=== PATIENT | male | born 1940 | race Caucasian/White ===

== ENCOUNTER 2016-09-16 08:54 | Inpatient (IN) | payer OTHER ==
[~2016-09-16] VITALS: Ht 177.8 cm; Wt 108.9 kg
[2016-09-16] VITALS (50 sets, daily range): BP systolic 58–143; BP diastolic 24–67
--- NOTE | ~2016-09-16 | D ---
[facility] [place] [address] DISCHARGE SUMMARY Name: GALO JOLLEY Room #: 245-P [facility] IN M.R.#: [id number] Admission: 09/16/16 Attend Phys: Colten Barros MD Discharge: 10/07/16 Date of : 42 Report #: [id number] THIS REPORT FOR: //name// CC: Colten Campuzano [facility] DATE OF SERVICE: 10/07/2016 The patient was originally discharged from the hospital on 10/04/2016. The patient left the hospital on 10/07/2016. HISTORY OF PRESENT ILLNESS: The patient is a 76-year-old man with complicated past medical history. He was admitted to the hospital on 09/16/2016, and was supposed to go on 10/04/2016. The patient had large sacral wound. After discharge summary was completed, the patient stayed in the hospital for another wound debridement. His hospital stay was uneventful and his condition did not change. Please refer to the discharge summary from 10/04/2016 for hospital course and for final diagnoses. The patient had repeat wound debridement for a large stage IV sacral gluteal decubitus wound on 10/07/2016. After that, the patient was transferred to the [facility] as it was planned originally. Again, his final diagnosis is same as stated on discharge summary on 10/04/2016. <ELECTRONICALLY SIGNED> By: Karen Harkins MD 10/31/16 1325 1506 1632 Karen Harkins MD /nt
--- NOTE | ~2016-09-16 | S ---
[facility] [place] [address] SURGICAL PATH RPT PROCEDURE Name: GILMER JOLLEY Room #: 249-P ADM IN M.R.#: [id number] Admission: 09/16/16 Date of : 42 Discharge: Report #: [id number] Path Case #: [id number] PATHOLOGY REPORT COLLECTION DATE: 09/27/2016 RECEIVED DATE: 09/27/2016 SUBMITTING PHYS: Dr. Kelly Proctor OTHER PHYS: MD Dr. Justen Chatman SPECIMEN(S) RECEIVED: A.Sacral wound tissue * * * * * * * * * * * * FINAL DIAGNOSIS: Sacral wound tissue, debridement: - Fragments of fibroadipose tissue along with skeletal muscle showing acute inflammation as well as fibrinoid necrosis. - Squamous epithelium showing ulceration along with marked acute inflammation, consistent with wound. (IUV:all; d/t: 09/30/2016) PATHOLOGIST: Candi Warner M.D. REPORT ELECTRONICALLY SIGNED BY: Candi Warner M.D. DATE/TIME: 09/30/2016 15:19 * * * * * * * * * * * * GROSS PATHOLOGY: The specimen is received in formalin, labeled "Gilmer Jolley and sacral wound tissue." Received are few pieces of blood tinged, guy-brown, and necrotic appearing skin with underlying soft tissue ranging from 5.0 x 2.5 x 0.5 cm to 26.2 x 20.5 x 5.0 cm. The epidermal surface of the largest piece displays a 25.0 cm in greatest dimension guy-brown, poorly circumscribed, roughened lesion. Jeeper Operator sections to include the ulcer-like lesion are submitted in cassette A1. (TTL; 09/27/2016) CLINICAL HISTORY: Sacral wound INITIAL CPT CODE(S): A; 57676 Professional services performed by [employer] at [address] [address] SURGICAL PATH RPT PROCEDURE Name: GILMER JOLLEY Room #: 249-P ADM IN M.R.#: [id number] Admission: 09/16/16 Date of : 42 Discharge: Report #: [id number] Path Case #: [id number] [address] [facility] , [place] [address] Technical services performed by [employer] at [address] [place] [address], [facility] [address] [address]. [place] [address] PHONE: [phone] DIRECTOR: Jefe Colindres M.D. * * * END OF REPORT * * *
--- NOTE | ~2016-09-16 | HC ---
[facility] [place] [address] CONSULTATION Name: GALO JOLLEY Room #: 249-P ADM IN M.R.#: [id number] Admission: 09/16/16 Attend Phys: Colten Barros MD Discharge: Date of : 42 Report #: [id number] THIS REPORT FOR: //name// CC: Colten Carr DATE OF SERVICE: 09/16/2016 NEPHROLOGY CONSULTATION REPORT DATE OF ADMISSION: 09/16/2016. REASON FOR CONSULTATION: Hyperkalemia and acute renal failure. HISTORY OF PRESENT ILLNESS: A 76-year-old patient was transferred from [facility] with respiratory failure, rising creatinine and shock. The patient apparently developed heart failure and was evaluated at 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 He also had left carotid endarterectomy. I believe this was probably in June, subsequently postoperatively developed a large and progressive sacral decubitus wound, which has undergone several surgical debridement. So the patient was transferred in mid August to [facility] for further evaluation and treatment. While there, the wound was evaluated. He was found to have a diverting colostomy as well. He became progressively ill and short of breath, was felt to have aspiration pneumonia, was intubated and brought to [facility] and admitted today. PAST MEDICAL HISTORY: Apparently in addition to the above, he has had a prior history of diabetes with peripheral vascular disease as well, possible arterial bypass procedures to both legs, and a history of hypertension as well. No lab is available from [facility], but his creatinine on admission there was 0.3, and I do not know of any history of prior renal disease. HOME MEDICATIONS: As listed from [facility] included p.r.n. albuterol, amlodipine 5 mg daily, ascorbic acid 500 mg b.i.d., aspirin, atorvastatin 40 mg daily, carvedilol 3.125 mg daily, iron, furosemide 20 mg daily, lansoprazole or Prevacid 30 mg daily, Tradjenta 5 mg daily, losartan 100 mg daily, multiple vitamins, potassium 20 mEq daily, Flomax 0.4 mg daily, zinc 50 mg daily. He also received vancomycin and Zosyn yesterday. Also worded are insulin and melatonin. FAMILY HISTORY: Please see the old charts, really I do not find it obtainable. SOCIAL HISTORY: Apparently a past smoker. [address] [address] CONSULTATION Name: GALO JOLLEY Room #: 249-P [facility] IN M.R.#: [id number] Admission: 09/16/16 Attend Phys: Colten Barros MD Discharge: Date of : 42 Report #: [id number] REVIEW OF SYSTEMS: Cannot be taken. PHYSICAL EXAMINATION: GENERAL: This is an ill-appearing, poorly responsive gentleman, intubated in the ICU. SKIN: Slightly poor turgor. SKELETAL: Both legs are cool. The knees are a little bit mottled. He is on pressors. Left foot is little bit cooler than the right. HEENT AND NECK: Extraocular movements cannot be tested. Pupils do react. Endotracheal tube in place. The neck is supple. No carotid bruits are heard. CHEST: Coarse with rhonchi and rales. HEART: Regular, somewhat tachycardic. ABDOMEN: Soft, nontender. Bowel sounds are minimally present. EXTREMITIES: Again, cool as mentioned. He does move all extremities. PERTINENT LABORATORY DATA: Urinalysis was very concentrated with a specific gravity greater than 1.030. Bacteriuria and leukocyturia were noted. The white count was 22.2, hemoglobin 9.3, bands 9%, and platelets 549. Sodium 141, potassium 6.5, chloride 104, bicarbonate 29, BUN 123, creatinine 3.6, glucose 294, calcium 11.3, magnesium 3.2, albumin 1.9. ASSESSMENT AND PLAN: 1. Acute kidney injury. He appears to be in hypotensive shock, possibly septic, possibly hypovolemic, likely a combination of the 2. He also was hypercalcemic which could be contributing. Aggressive IV fluids are being undertaken. He is hyperkalemic, not surprisingly, but he has been getting potassium and losartan, lots of antihypertensives, and now, he is getting aggressive fluid resuscitation. There is some urine output. I am not aware from the records that I confine that he has had a renal failure, has been on dialysis. Unfortunately, the records sent are very scanty, what we do have does not seem to indicate pre-existing renal failure. 2. Status post coronary bypass, seems to be healing reasonably well. 3. Large difficult sacral decubitus ulcer. 4. Respiratory failure, possibly aspiration. 5. Apparent septic shock, on pressors being given aggressive IV fluids. These will be adjusted. 6. Status post diverting colostomy. 7. History of diabetes mellitus. 8. Severe peripheral vascular disease, status post peripheral bypass procedures. <ELECTRONICALLY SIGNED> By: Stevo Calixto MD 09/17/16 1250 09 29 Tyler Bruce MD /nt
--- NOTE | ~2016-09-16 | O ---
[facility] [place] [address] OPERATIVE REPORT Name: GALO JOLLEY Room #: 249-P [facility] IN M.R.#: [id number] Admission: 09/16/16 Attend Phys: Colten Barros MD Discharge: Date of : 41 Report #: [id number] THIS REPORT FOR: //name// CC: Colten Carr DATE OF SERVICE: 09/27/2016 DATE OF SERVICE: 09/27/2016 PREOPERATIVE DIAGNOSES: 1. 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 2. Severe protein calorie malnutrition. 3. Diabetes mellitus. 4. Coronary artery disease status post 4-vessel CABG. 5. Dysphagia status post PEG tube placement. 6. Hypertension. 7. Congestive heart failure. 8. Peripheral arterial disease. 9. Chronic anemia. 10. Recent colostomy placement for fecal diversion. 11. Respiratory failure that is ventilator dependent. 12. Healthcare-associated pneumonia. POSTOPERATIVE DIAGNOSES: 1. 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 2. Severe protein calorie malnutrition. 3. Diabetes mellitus. 4. Coronary artery disease status post 4-vessel CABG. 5. Dysphagia status post PEG tube placement. 6. Hypertension. 7. Congestive heart failure. 8. Peripheral arterial disease. 9. Chronic anemia. 10. Recent colostomy placement for fecal diversion. 11. Respiratory failure that is ventilator dependent. 12. Healthcare-associated pneumonia. PROCEDURE PERFORMED: Excisional debridement of skin and subcutaneous tissue, muscle and bone from a very large stage IV recurrent sacral decubitus wound ultimately measuring 30 x 28 cm in dimension (840 square cm). Preoperative wound measurements were 24 x 26 cm in dimension with overt necrosis circumferentially and throughout the bed of the wound. SURGEON: Kelly Proctor M.D. [address] [address] OPERATIVE REPORT Name: SHOLAGALO Room #: 249-P [facility] IN M.R.#: [id number] Admission: 09/16/16 Attend Phys: Colten Barros MD Discharge: Date of : 41 Report #: [id number] AUTOMOBILE BODY REPAIR CHIEF: GIOVANI Akhtar. ANESTHESIA: General endotracheal anesthesia. ESTIMATED BLOOD LOSS: Minimal (less than 20 mL). COMPLICATIONS: None appreciated. SPECIMENS: All excised tissue to pathology with excised sacral bone to microbiology for aerobic and anaerobic culture and sensitivity. COMPLICATIONS: None appreciated. INDICATIONS: The patient is a 76-year-old male with complicated recent past medical history that began with shortness of breath where he was found to be in CHF and pulmonary edema. The patient had an abnormal EKG and underwent left carotid endarterectomy with 4-vessel CABG due to an NH as well as stenting of subclavian stenosis. At some point throughout his hospitalization at [facility], he developed a stage IV sacral decubitus wound, which underwent multiple excisional debridements at the outside facility and he was ultimately transitioned to [facility] for long-term wound care and antibiotic therapy. The patient's severe sacral wound continued with recurrent necrosis and purulent drainage and due to its close proximity to the anal orifice, he was taken to the operating room on 09/13/2016 for diverting colostomy as well as excisional debridement of his wound back to healthy tissue. At the time of his debridement, the patient's wound showed a very compromised tissue throughout with difficulty in obtaining any blood flow to the gluteal musculature deep in the wound. An aggressive debridement was undertaken with plans for suspected repeat debridements in the future and the diverting colostomy was performed and he was discharged back to [facility] for continued wound care and antibiotic therapy. Some time on postoperative day #3 while at [facility], he developed increasing work of breathing where he was transitioned back to [facility] and was found to have healthcare-associated pneumonia and septic shock with sepsis secondary to Klebsiella urinary tract infection. The patient has since stabilized, although still in respiratory failure that is ventilator dependent and his wound shows overt recurrent necrosis throughout and as such, indication was for repeat debridement today. DESCRIPTION OF PROCEDURE: After explaining the risks, benefits and alternatives of the procedure with the patient's son, Adi Knox and his DPOA, Juan and obtaining consent, the patient was brought to the operating room, supine on his hospital bed. After conducting a thorough timeout procedure, verifying correct patient and procedure, he was given general endotracheal anesthesia via his indwelling oral tracheal tube. The patient's SCDs were continuously hooked up to pneumatic compression device and he was already on an inpatient regimen of IV antibiotic therapy, which is all in line with the SCIP protocol. The patient [address] [address] OPERATIVE REPORT Name: GALO JOLLEY Room #: 249-P [facility] IN M.R.#: [id number] Admission: 09/16/16 Attend Phys: Colten Barros MD Discharge: Date of : 42 Report #: [id number] was positioned on the operating room table in the prone position with all pressure points appropriately padded. The patient's wound was now prepped and draped in standard surgical sterile fashion. Electrocautery was used to circumferentially debride all nonviable skin and subcutaneous tissue, muscle and bone throughout the bed of the entire wound. This was done until I arrived upon healthy vascularized tissue throughout and ultimately this created a wound that was even more sizable then at the outset and ultimately measured 30 x 28 cm in dimension. Once all the necrotic nonviable tissue was removed, hemostasis was assured with electrocautery. The tip of the coccyx was removed and passed off the field as bone for microbiologic analysis. The tissue just inferior to this coccyx showed questionable viability; however, digital rectal exam showed that the rectum itself was very near to the surface and removal of this tissue would leave the rectum exposed in the bed of the wound. As such, this tissue was left in place and 2 sutures of 3-0 Vicryl were placed to anchor this to the surrounding tissue even further to hopefully prevent rectal exposure. I now used the Nitchonix ultrasonic debridement tool to circumferentially debride back all additional nonviable tissue as well as biofilm from the entirety of the wound. Gentle pressure was held on the wound and we had complete hemostasis. The wound was irrigated and dried and then I proceeded to spray thrombin throughout the bed of the wound for assistance with further hemostasis. The wound was then packed tightly with sterile saline soaked Kerlix gauze and was dressed with ABDs and Medipore tape. At the end of the procedure, all instrument, needle and sponge counts were correct. The patient tolerated the procedure without incident, was awakened in the operating room, still intubated and transitioned back to the ICU in stable condition in respiratory failure. I will have a discussion with Interventional Radiology to see if they are willing to attempt revascularization of his internal iliac arteries as his blood flow to the gluteal regions is severely compromised and without adequate blood flow will likely lead to poor outcomes. <ELECTRONICALLY SIGNED> By: Kelly Proctor MD, FACS 09/30/16 0754 1244 1316 Kelly Proctor MD, FACS /nt
--- NOTE | ~2016-09-16 | EKG ---
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 : 1940 Requested By: Tramaine Spangler Order Number: [id number] MD: John Hernandez Measurements Intervals [place] Rate: 109 P: 71 [place]: 137 QRS: 66 QRSD: 83 T: 251 QT: 315 QTc: 425 Interpretive Statements Sinus tachycardia Probable left atrial enlargement Probable LVH with secondary repol abnrm No previous ECG available for comparison Electronically Signed On 09-19-2016 15:47:33 AUTOMOBILE WRECK[employer] by John Hernandez [email or web address] <ELECTRONICALLY SIGNED> By: John Hernandez MD 09/19/16 1547 0925 4 John Hernandez MD /JUANITA
--- NOTE | ~2016-09-16 | HC ---
[facility] [place] [address] CONSULTATION Name: GALO JOLLEY Room #: 249-P ADM IN M.R.#: [id number] Admission: 09/16/16 Attend Phys: Colten Barros MD Discharge: Date of : 41 Report #: [id number] THIS REPORT FOR: //name// CC: Colten Carr DATE OF SERVICE: 09/16/2016 REASON FOR CONSULTATION: Acute respiratory failure with aspiration pneumonia. IMPRESSION: 1. Acute respiratory failure with aspiration pneumonia. 2. Septic shock. 3. History of congestive heart failure with coronary artery bypass graft. 4. Decubitus. 5. Diverting colostomy. 6. Leukocytosis. 7. Anemia. 8. Lactic acidosis. 9. Acute renal failure on chronic. 10. Hyperkalemia. 11. Elevated calcitonin. 12. Severe hypoxemia. 13. Peripheral arterial disease. PLAN: 1. ICU protocol. 2. Sepsis protocol. 3. Renal to see regarding fluid management. 4. May need CT abdomen and surgical evaluation. 5. ID and wound care to see also. HISTORY OF PRESENT ILLNESS: Review of Dr. Espinoza note, a 76-year-old male presented with some shortness of breath to [facility] with CHF and pulmonary edema, given Lasix, taken to [place], developed sacral wound, had multiple debridements, also CABG surgery. The patient was stabilized and transferred to [facility] on, I believe 09/04/2016. The patient developed confusion, respiratory failure, transferred to [place], temperature 38.5 with decreased level of consciousness, required intubation and by report had emesis and aspiration during that time. The patient was seen in the ER, sedated, did not follow. ALLERGIES: No known per chart. MEDICATIONS: Reviewed. [facility] [address] [place] [address] CONSULTATION Name: GALO JOLLEY Room #: 249-P [facility] IN M.R.#: [id number] Admission: 09/16/16 Attend Phys: Colten Barros MD Discharge: Date of : 41 Report #: [id number] PAST MEDICAL HISTORY: Includes diabetes, coronary artery disease, delirium, anemia, hypertension, CHF, peripheral vascular disease. FAMILY HISTORY: Unobtainable. SOCIAL HISTORY: Positive tobacco in past. Negative ETOH and drugs of abuse per notes. PHYSICAL EXAMINATION: VITAL SIGNS: T-max 100.3, pulse 111, respirations 28, BP 93/43 on pressor. LUNGS: Coarse. HEART: Tachycardic. ABDOMEN: Bowel sounds decreased. EXTREMITIES: Coolness on left and discoloration. CHEST X-RAY: Showed endotracheal tube in place, PICC line right atrial junction, heart enlarged, atelectasis on left. LABORATORY DATA: White count 22, hemoglobin 9.3, MCV 95, platelets 549, bands were 9, INR 1.2. D-dimer 9.86, lactic acid 3.8. CMP showed potassium . BUN 123. Creatinine 3.6, calcium 11.3 ABG on 100%, rate is 16, tidal volume 600, PEEP of 5, pH 7.388, pCO2 43, pO2 73. KUB showed gas at small and large bowel. Arterial Doppler showed severe left lower extremity arterial disease, very slow attenuated arterial flow and bypass graft. We will follow closely with you, antibiotics per ID, pressors as necessary. <ELECTRONICALLY SIGNED> By: Oriana Linda MD 09/16/16 2202 1414 1745 Oriana Linda MD /nt
--- NOTE | ~2016-09-16 | O ---
[facility] [place] [address] OPERATIVE REPORT Name: GALO JOLLEY Room #: 245-P [facility] IN M.R.#: [id number] Admission: 09/16/16 Attend Phys: Colten Barros MD Discharge: 10/07/16 Date of : 42 Report #: [id number] THIS REPORT FOR: //name// CC: Colten Carr DATE OF SERVICE: 10/07/2016 PREOPERATIVE DIAGNOSES: 1. 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 2. Severe protein calorie malnutrition. 3. Diabetes mellitus. 4. Coronary artery disease status post 4-vessel coronary artery bypass graft. 5. Dysphagia status post PEG tube placement. 6. Hypertension. 7. Congestive heart failure. 8. Peripheral arterial disease, status post angiogram with stenting. 9. Chronic anemia. 10. Recent colostomy placement for fecal diversion. 11. Respiratory failure, tracheostomy and ventilator dependent. 12. Resolving healthcare-associated pneumonia and urinary tract infection. POSTOPERATIVE DIAGNOSES: 1. 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 2. Severe protein calorie malnutrition. 3. Diabetes mellitus. 4. Coronary artery disease status post 4-vessel coronary artery bypass graft. 5. Dysphagia status post PEG tube placement. 6. Hypertension. 7. Congestive heart failure. 8. Peripheral arterial disease, status post angiogram with stenting. 9. Chronic anemia. 10. Recent colostomy placement for fecal diversion. 11. Respiratory failure, tracheostomy and ventilator dependent. 12. Resolving healthcare-associated pneumonia and urinary tract infection. PROCEDURE PERFORMED: Excisional debridement of skin, subcutaneous tissue, muscle and bone from very large stage IV, recurrent, sacro-gluteal decubitus wound ultimately measuring 32 x 32 cm in dimension (1024 square cm). Preoperative wound measurements were 30 x 28 cm in dimension with overt periwound necrosis circumferentially and throughout the bed of the wound. SURGEON: Kelly Proctor MD. SAS ANALYST: Colten Weathers, MS3. [address] [address] OPERATIVE REPORT Name: GALO JOLLEY Room #: 245-P [facility] IN M.R.#: [id number] Admission: 09/16/16 Attend Phys: Colten Barros MD Discharge: 10/07/16 Date of : 41 Report #: [id number] ANESTHESIA: General endotracheal anesthesia. ESTIMATED BLOOD LOSS: 40 mL. COMPLICATIONS: None appreciated. SPECIMENS: All excised tissue to pathology with the excised sacral bone to microbiology for culture. COMPLICATIONS: None appreciated. INDICATIONS: The patient is a 76-year-old male with complicated recent past medical history that began with shortness of breath where he was found to be in CHF and pulmonary edema. The patient underwent workup with EKG and carotid ultrasound and was found to have necessity of both 4-vessel CABG and left carotid endarterectomy. The carotid was elected to be addressed first and after undergoing left carotid endarterectomy, he developed myocardial infarction and underwent 4-vessel CABG as well as stenting of subclavian stenosis throughout his hospitalization at the outside hospital. At some point throughout his hospitalization while at [facility], he developed a stage 4 sacral decubitus wound that underwent multiple excisional debridements and he was ultimately transitioned to [facility] for rehabilitative care. The patient's wound continued with recurrent necrosis and purulent drainage and was taken to the operating room on 09/13/2016 for diverting colostomy and excisional debridement of his wound. The patient's wound has shown compromised tissue throughout with difficulty in obtaining any bleeding to the gluteal musculature and underwent that aggressive debridement. The patient was transitioned back to [facility] for continued therapy, but unfortunately developed healthcare-associated pneumonia and septic shock with urosepsis and was transitioned back to [facility] where he was intubated and remained intubated for 2 weeks due to respiratory failure. The patient underwent tracheostomy placement 1 week ago as well as underwent an aggressive angiography with stenting of flow limiting stenoses to the bilateral iliac regions. The completion angiogram showed significantly improved blood flow via collateral circulation to the sacro-gluteal region and as such, he continued in the ICU with antibiotic therapy, pulmonary management with intent to proceed back to the operating room today for repeat debridement in hopes that improved blood flow to the area will allow for some proper wound healing. DESCRIPTION OF PROCEDURE: After explaining the risks, benefits and alternatives of the procedure with the patient's son Adi Knox, his DPOA Juan as well as his daughter Pam and I had obtained proper consent. The patient was brought to the operating room, supine on his hospital bed. After conducting a thorough timeout procedure verifying correct patient and procedure, the patient was given general anesthesia via his indwelling tracheostomy appliance. The patient's SCDs were hooked up to the pneumatic compression device and he was already on an [facility] [address] [address] OPERATIVE REPORT Name: GALO JOLLEY Room #: 245-P [facility] IN M.R.#: [id number] Admission: 09/16/16 Attend Phys: Colten Barros MD Discharge: 10/07/16 Date of : 41 Report #: [id number] inpatient regimen of IV antibiotic therapy, which is all in line with the SCIP protocol. The patient was then positioned on the operating room table in the prone position with all pressure points appropriately padded. The patient's wound was now prepped and draped in standard surgical sterile fashion. Electrocautery was used to circumferentially debride all nonviable skin, subcutaneous tissue, muscle and bone throughout the bed of the entire wound. This was done until I arrived upon healthy vascularized tissue throughout which had markedly improved blood flow today versus the prior debridement time, which was 10 days ago today. Ultimately, this yielded a wound that was nearly circular and measured 32 x 32 cm in dimension. The tip of the coccyx as well as the patient's left ischial bone were removed with rongeurs back to healthy bleeding bone. This was the first time I got healthy bleeding bone as well and the tip of the coccyx was difficult to obtain hemostasis on and as such, bone wax was used with ultimately yielding a complete hemostasis. I now utilized the Introhive ultrasonic debridement tool to circumferentially debride all additional nonviable tissue as well as the biofilm that had collected from the entirety of the wound. This again yielded significant bleeding throughout the entirety of the wound and gentle pressure was held to the wound for hemostasis. Electrocautery was used to obtain ultimate hemostasis at this juncture. The wound was now copiously irrigated and dried. Hemostasis was assured. I did elect to place a spray thrombin throughout the bed of the wound for assistance with long-term hemostasis and then packed the wound tightly with sterile saline soaked Kerlix gauze and dressed the wound with ABDs and Medipore tape. At the end of the procedure, all instrument, needle and sponge counts were correct. The patient tolerated the procedure without incident, was awakened in the operating room, still ventilated through his tracheostomy where he was transitioned back to the ICU in stable condition with no apparent complications. <ELECTRONICALLY SIGNED> By: Kelly Proctor MD, FACS 10/08/16 1012 [id number] Kelly Proctor MD, FACS /nt
--- NOTE | ~2016-09-16 | HC ---
[facility] [place] [address] CONSULTATION Name: GALO JOLLEY Room #: 249-P ADM IN M.R.#: [id number] Admission: 09/16/16 Attend Phys: Colten Barros MD Discharge: Date of : 41 Report #: [id number] THIS REPORT FOR: //name// CC: Colten Carr DATE OF SERVICE: 09/17/2016 We were asked to see this patient. HISTORY OF PRESENT ILLNESS: The patient is a 76-year-old in the Intensive Care Unit with lower extremity arterial occlusive disease, specifically the patient is noted to have a pale left lower extremity. The patient is intubated and the history is from the chart and the staff. The patient seems to have been admitted September 16 as a transfer from [facility] for respiratory distress. The patient had been on BiPAP for the 14 hours prior to transfer over. He was started on vancomycin and Zosyn for worsening pulmonary infiltrates. The patient had a fever of 101.3, systolic blood pressure of 82 and heart rate 114 and concern was raised about sepsis with this confluence of issues. The patient seems to have been operated for coronary artery disease on 07/25/2016 and has had complications since that time with PEG tube, Aceves, colostomy. Postoperative to the bypass surgery, the patient developed sacral decubitus that required debridement, diverting colostomy. The patient had been transferred to [facility] for further wound care. Since that time, he had developed further confusion, respiratory failure and was transferred to this facility. ALLERGIES: None. MEDICATIONS: Vancomycin and Zosyn at the time of transfer. REVIEW OF SYSTEMS: Limited to the material on the chart. FAMILY HISTORY: Limited to the material on the records. PHYSICAL EXAMINATION: GENERAL: The patient is intubated. VITAL SIGNS: Temperature currently 36.8, pulse rate 109, blood pressure 113/44, O2 sat 100 on ventilator with supplemental oxygen. HEENT: I see no icterus. NECK: No mass, no bruit. CHEST: Scattered crackles. HEART: Rhythm regular. [address] [address] CONSULTATION Name: GALO JOLLEY Room #: 249-P ADM IN M.R.#: [id number] Admission: 09/16/16 Attend Phys: Colten Barros MD Discharge: Date of : 41 Report #: [id number] ABDOMEN: We note colostomy; soft, no mass, somewhat distended. EXTREMITIES: Left lower extremity is pale relative to the right. I do not feel a left femoral popliteal or dorsalis pedis or posterior tibial pulses. Right femoral pulse is strong. Right popliteal pulse is strong. We note saphenous vein harvest incisions or what appeared to be such in the right lower extremity. There does appear to be a left groin incision that is well healed. ASSESSMENT: The patient appears to have left iliofemoral thrombosis. It is not clear whether this is an acute event or an acute discovery of an event that happened some time ago. In any event, the patient is ill and he may be too ill for evaluation and treatment of this problem currently. Specifically, the patient would need some sort of imaging study, be it a CT angiogram or a direct arterial puncture, or arteriogram with possible intervention as appropriate. This may include thrombolytic treatment which we would have to review with others to make sure that there would be no contraindication. BUN and creatinine are elevated and the patient is a poor candidate for contrast at this point. It may be that the patient is too sick for adequate "usual" treatment of this problem. We will discuss with the others. Thank you for the consult. <ELECTRONICALLY SIGNED> By: Justen Baker MD 09/23/16 0937 [id number] Justen Baker MD /nt
--- NOTE | ~2016-09-16 | HC ---
[facility] [place] [address] CONSULTATION Name: GALO JOLLEY Room #: 249-P [facility] IN M.R.#: [id number] Admission: 09/16/16 Attend Phys: Colten Barros MD Discharge: Date of : 41 Report #: [id number] THIS REPORT FOR: //name// CC: Colten Carr DATE OF SERVICE: 09/17/2016 PERSONAL PHYSICIAN: Colten Barros MD CHIEF COMPLAINT: Decubitus ulcers. HISTORY OF PRESENT ILLNESS: This is a 76-year-old white male who was recently transferred from [facility] in septic shock, respiratory failure, and aspiration. The patient initially had been transferred to [facility] for treatment of a large sacrococcygeal decubitus ulcer. The patient supposedly started out at [facility] where he was in congestive heart failure and pulmonary edema. He was then transferred to [facility] where he underwent coronary bypass grafting. Postoperatively, the patient developed a large decubitus ulcer, which required surgical debridement and a diverting colostomy. The patient was transferred back to [facility] for further wound care antibiotic treatment; however, developed confusion, respiratory failure and was transferred back to [facility] for further aggressive care. The patient is currently in the ICU, intubated and sedated and unable to give any history. PAST MEDICAL HISTORY: Significant for diabetes, coronary artery disease, congestive heart failure, peripheral vascular disease, and hypertension. CURRENT MEDICATIONS: Multiple, I reviewed the patient's medication list. DRUG ALLERGIES: None. SOCIAL HISTORY: The patient has a history of smoking. FAMILY HISTORY AND REVIEW OF SYSTEMS: Unobtainable because the patient is intubated and sedated. PHYSICAL EXAMINATION: VITAL SIGNS: Blood pressure is in the 110s on Levophed drip. Heart rate is approximately 110, respiratory rate 15. GENERAL: This is an intubated and sedated white male who does moan and grimace to pain. HEENT: Normocephalic, atraumatic. Mucous membranes are dry. Oral endotracheal tube is in place as is oral gastric tube. NECK: Without JVD. [facility] [address] [place] [address] CONSULTATION Name: GALO JOLLEY Room #: 249-P [facility] IN M.R.#: [id number] Admission: 09/16/16 Attend Phys: Colten Barros MD Discharge: Date of : 41 Report #: [id number] LUNGS: Coarse throughout. HEART: Tachycardic. ABDOMEN: Soft. PEG tube is in place. Colostomy is in place and functioning. EXTREMITIES: Left lower extremity is somewhat mottled and cool to touch with absent peripheral pulses. Left heel has a deep tissue injury, which is somewhat boggy, but intact. Left great toe has a deep tissue injury, which is dry and intact. Right lower extremity is much warmer with a faint dorsalis pedis and posterior tibial pulse. Right heel is intact. NEUROLOGIC: Once again, the patient is intubated and sedated. SKIN: Evaluation of sacrococcygeal area reveals a large decubitus ulcer involving the entire sacrococcygeal region extending out into bilateral gluteal regions. There is exposed sacral bone and fascia. The wound itself has fairly sharp margins; however, it appears somewhat dusky. Periwound is ecchymotic. There was moderate foul odor noted. The wound bed is a mix of granulation slough. There is no significant tunneling or tracking. LABORATORY DATA: Albumin is markedly low at 1.9, creatinine is 3.6. IMPRESSION: 1. Largest stage IV sacrococcygeal decubitus ulcer extending out into the gluteal region. 2. Status post PEG tube placement. 3. Status post diverting colostomy. 4. Sepsis, most likely secondary to aspiration and respiratory failure. 5. Severe protein calorie malnutrition with an albumin of 1.9. 6. Left heel deep tissue injury with concern. 7. Left great toe deep tissue injury both present on admission. 8. Peripheral vascular disease with a concern for left foot ischemia. PLAN: At this time, given the patient's critical illness, we will use Dakin's quarter strength wet to dry dressings twice daily to his sacrococcygeal region. We will put him on a low air loss mattress and will be turned every 2 hours. We will paint the deep tissue injury with Betadine pending vascular evaluation. Make sure we maximize the patient's tube feedings with protein for supplementation for healing. We will continue to follow the patient while he is an inpatient. I appreciate the ability to consult. <ELECTRONICALLY SIGNED> By: Tez Reinoso MD 10/03/16 1342 1812 [id number] Tez Reinoso MD /nt
--- NOTE | ~2016-09-16 | HC ---
[facility] [place] [address] CONSULTATION Name: GALO JOLLEY Room #: 249-P ADM IN M.R.#: [id number] Admission: 09/16/16 Attend Phys: Colten Barros MD Discharge: Date of : 41 Report #: [id number] THIS REPORT FOR: //name// CC: Saul Calixto MD HISTORY OF PRESENT ILLNESS: The patient is a 76-year-old male with anemia and Hemoccult positive stool, which is the reason for GI consultation. The patient has multiple medical problems including currently being in the ICU on a ventilator. He is sedated at this time. He has undergone a diverting colostomy for a large stage IV sacrogluteal decubitus wound. The patient has had aspiration pneumonia and again is intubated at this time, also with a recent history of septic shock. Unable to obtain any history from the patient at this time; however, nursing reports brown stools. He did have a unit transfused of packed red blood cells on September 23 as well as September 16. He is on PPI therapy beginning yesterday. It is unclear if he has ever had a previous history of GI bleed. He does have a PEG tube in place, which is being used and apparently he is tolerating this well. PAST MEDICAL HISTORY: Large sacrogluteal decubitus wound, history of coronary artery disease, previous history of CABG, hypertension, history of sepsis, congestive heart failure, chronic anemia, diabetes, previous left carotid endarterectomy, peripheral vascular disease, PEG tube placement, diverting colostomy. ALLERGIES: No known drug allergies. FAMILY HISTORY: Unknown. SOCIAL HISTORY: Apparently previous smoker, no history of significant alcohol use. REVIEW OF SYSTEMS: Unobtainable. CURRENT MEDICATIONS: Norepinephrine, Protonix 40 b.i.d., vancomycin, fentanyl p.r.n., insulin, Unasyn, Lovenox, metoclopramide, albuterol, Tylenol p.r.n., propofol as direct. PHYSICAL EXAMINATION: VITAL SIGNS: Temperature is 97.7, pulse is 94, blood pressure 153/54, respiratory rate is 25. GENERAL: He is sedated. HEENT: Sclerae nonicteric. Oropharynx, endotracheal tube is in place. [address] [address] CONSULTATION Name: GALO JOLLEY Room #: 249-P [facility] IN M.R.#: [id number] Admission: 09/16/16 Attend Phys: Colten Barros MD Discharge: Date of : 41 Report #: [id number] NECK: Supple. CARDIOVASCULAR: Regular rate. CHEST: With decreased breath sounds bilaterally. ABDOMEN: Soft. He has a colostomy and is just left to midline in the mid abdomen. There is a brown liquid stool. There is no evidence of bleeding. Abdomen is soft. He is nondistended. A PEG tube is noted to be in place in the left upper quadrant, no signs of bleeding. EXTREMITIES: No cyanosis, clubbing or edema. LABORATORY DATA: Sodium 154, potassium 4.1, chloride 123, bicarbonate 21, BUN 39, creatinine 0.6, AST 22, total bilirubin 0.2, alkaline phosphatase 104, ALT 24, albumin 1.2. INR 1.1. WBC is 18.6, hemoglobin is 8.3, it has been fairly stable over the last 24 hours, although his hemoglobin was 6.9 early yesterday morning, and platelet count is 275. ASSESSMENT AND PLAN: 1. Anemia, Hemoccult positive stool. No signs of significant GI bleed at this time. He did receive 1 unit of packed cells yesterday. Agree with PPI therapy, which was just started. We will continue to monitor hemoglobin closely. If he has a significant drop or signs of significant bleeding in the near future, could consider upper endoscopy or further evaluation at that point. In the meantime, we will continue to monitor closely. Thank you for allowing me to participate in his care. <ELECTRONICALLY SIGNED> By: Ceasar Pantoja MD 09/25/16 [id number] Ceasar Pantoja MD /nt
--- NOTE | ~2016-09-16 | O ---
[facility] [place] [address] OPERATIVE REPORT Name: GALO JOLLEY Room #: 249-P [facility] IN M.R.#: [id number] Admission: 09/16/16 Attend Phys: Colten Barros MD Discharge: Date of : 42 Report #: [id number] THIS REPORT FOR: //name// CC: Colten Carr DATE OF SERVICE: 09/30/2016 PREOPERATIVE DIAGNOSES: 1. Respiratory failure, ventilator dependent. 2. 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 3. Severe protein-calorie malnutrition. 4. Diabetes mellitus. 5. Encephalopathy. 6. Coronary artery disease, status post 4-vessel CABG. 7. Dysphagia status post PEG tube placement. 8. Hypertension. 9. Congestive heart failure. 10. Peripheral arterial disease. 11. Chronic anemia. 12. Recent colostomy placement for fecal diversion. 13. Recent sepsis secondary to healthcare-associated pneumonia and urinary tract infection. POSTOPERATIVE DIAGNOSES: 1. Respiratory failure, ventilator dependent. 2. 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 3. Severe protein-calorie malnutrition. 4. Diabetes mellitus. 5. Encephalopathy. 6. Coronary artery disease, status post 4-vessel CABG. 7. Dysphagia status post PEG tube placement. 8. Hypertension. 9. Congestive heart failure. 10. Peripheral arterial disease. 11. Chronic anemia. 12. Recent colostomy placement for fecal diversion. 13. Recent sepsis secondary to healthcare-associated pneumonia and urinary tract infection. PROCEDURE: Tracheostomy placement using an #8 Shiley cuffed tracheostomy appliance. SURGEON: Kelly Proctor MD. TRANSFER STATION OPERATOR: Yuri Del Rio MD. [address] [address] OPERATIVE REPORT Name: GALO JOLLEY Room #: 249-P [facility] IN M.R.#: [id number] Admission: 09/16/16 Attend Phys: Colten Barros MD Discharge: Date of : 41 Report #: [id number] ANESTHESIA: General endotracheal anesthesia. ESTIMATED BLOOD LOSS: Minimal (less than 5 mL). COMPLICATIONS: None appreciated. SPECIMENS: None. INDICATIONS: The patient is a 76-year-old male with a complicated recent past medical history that began with shortness of breath, where he was found to have CHF and pulmonary edema. The patient had an abnormal EKG, as well as carotid artery blockage and underwent carotid endarterectomy with a subsequent myocardial infarction, that resulted in emergent 4-vessel CABG. The patient had postoperative respiratory failure from that procedure, but ultimately was extubated 2 weeks postoperatively, immediately prior to tracheostomy placement, and was transitioned to a long-term acute care center for rehabilitative efforts and antibiotics. Unfortunately, the patient did develop a stage 4 sacral decubitus wound throughout his hospitalization, for which he has undergone numerous debridements, and this necessitated another large debridement with diverting colostomy. Unfortunately, the patient was found to have healthcare-associated pneumonia and urinary tract infection, while back at the LTAC, and transitioned back to the acute care setting, where he was intubated, and has been in respiratory failure for the past 2 weeks. The patient has since undergone repeat debridement of his wound back to healthy tissue, but unfortunately as he has been unable to wean from the ventilator, and has been intubated for 2 weeks, indication was for tracheostomy placement today. DESCRIPTION OF PROCEDURE: After explaining the risks, benefits, and alternatives of the procedure and obtaining consent, the patient was brought to the operating room and placed supine on the operating room table. After conducting a thorough timeout procedure, verifying correct patient and procedure, the patient was given general endotracheal anesthesia, via his indwelling orotracheal tube. Once adequate anesthesia was attained, a shoulder roll was placed, with his head at slight extension, and his anterior neck was prepped and draped in the standard surgical sterile fashion. The patient's SCDs were hooked up to pneumatic compression device, and he was already on an inpatient regimen of IV antibiotic therapy, which is all in line with the SCIP protocol. A 5 mL of 0.5% Marcaine with epinephrine were used to anesthetize the skin in the anterior neck, midway between the sternal notch, and the cricothyroid membrane. A #15 bladed scalpel was used to create a 1.5 cm transverse incision at this location. Electrocautery was used to carry this down through the skin and subcutaneous tissue and platysma muscle, revealing the strap muscles posteriorly. The strap muscles were retracted laterally, and the avascular plain was opened down the midline using electrocautery, until we arrived upon the isthmus of the thyroid. The isthmus of the thyroid was [address] [address] OPERATIVE REPORT Name: GALO JOLLEY Room #: 249-P ADM IN M.R.#: [id number] Admission: 09/16/16 Attend Phys: Colten Barros MD Discharge: Date of : 41 Report #: [id number] transected slowly using electrocautery for meticulous hemostasis, which allowed us to arrive upon the anterior tracheal rings. The cricothyroid membrane was identified, and the second tracheal ring was identified. I now proceeded to create an H-type incision in the second tracheal ring using a #11 bladed scalpel. Each of the H-type flaps were removed with curved Alex scissors and passed off the field. Anesthesia now slowly withdrew the endotracheal tube until the tip was just cephalad to the tracheotomy, and a tracheal industrial hygienist device was used to dilate the tract. An #8 Shiley cuffed tracheostomy appliance was then placed through the tracheotomy with ease, and the cuff was inflated. The inner cannula was placed, and the tracheostomy was attached to the ventilator, showing immediate return of end-tidal CO2 with good tidal volumes. We saw no evidence of bleeding whatsoever. I proceeded to secure the tracheostomy appliance into place, using 2-0 nylon in standard fashion, as well as a foam tracheostomy strap. At the end of the procedure, all instrument, needle, and sponge counts were correct. The patient tolerated the procedure without incident, was awakened in the operating room, and transitioned back to the ICU on his hospital bed in stable condition with no apparent complications. <ELECTRONICALLY SIGNED> By: Kelly Proctor MD, FACS 09/30/16 1450 1344 1435 Kelly Proctor MD, FACS /nt
--- NOTE | ~2016-09-16 | S ---
[facility] [place] [address] SURGICAL PATH RPT PROCEDURE Name: GILMER JOLLEY Room #: 245-P [facility] IN M.R.#: [id number] Admission: 09/16/16 Date of : 42 Discharge: 10/07/16 Report #: [id number] Path Case #: [id number] PATHOLOGY REPORT COLLECTION DATE: 10/07/2016 RECEIVED DATE: 10/07/2016 SUBMITTING PHYS: Dr. Kelly Proctor OTHER PHYS: MD Dr. Justen Chatman SPECIMEN(S) RECEIVED: A.Sacral wound B.Sacral bone * * * * * * * * * * * * FINAL DIAGNOSIS: A. "Sacral wound," debridement: - Skin, subcutaneous tissue, and skeletal muscle with acute and chronic inflammation, necrosis, granulation tissue, fat necrosis, and pseudoepitheliomatous hyperplasia. B. "Sacral bone," debridement: - Decalcified bone and periosteum with focal acute osteomyelitis and fat necrosis. (CLW:; d/t: 10/09/16) PATHOLOGIST: La Sharma M.D. REPORT ELECTRONICALLY SIGNED BY: La Sharma M.D. DATE/TIME: 10/09/2016 15:08 * * * * * * * * * * * * GROSS PATHOLOGY: A. The specimen is received in formalin, labeled "Gilmer Jolley and sacral wound." Received is a 17.4 x 13.3 x 6.2 cm aggregate of yellow-guy to guy-brown and necrotic appearing soft tissue with overlying skin. The epidermal surfaces are guy-brown, wrinkled, and display ulcer-like lesions ranging from 1.8-7.8 cm in greatest dimension. Dock Hand sections to include skin and the ulcer-like lesions are submitted in cassette A1. B. The specimen is received in formalin, labeled "Gilmer Jolley and sacral bone." Received is a 2.5 x 1.1 x 0.4 cm aggregate of yellow-guy, irregular, and porous pieces of bone. The specimen is representatively submitted in cassette B1, following decalcification. (TTL; 10/08/2016) CLINICAL HISTORY: [facility] [place] [address] SURGICAL PATH RPT PROCEDURE Name: IGLMER JOLLEY Room #: 245-P [facility] IN M.R.#: [id number] Admission: 09/16/16 Date of : 41 Discharge: 10/07/16 Report #: [id number] Path Case #: [id number] Sacral decubitus wound INITIAL CPT CODE(S): A; 65820 B; 29225, 39251 Professional services performed by [facility] at [place] [address] [address], [place] [address] Technical services performed by [facility] at [address] [place] [address], [address] [address]. [facility] [address] [address] PHONE: [phone] DIRECTOR: Jefe W. Jens, M.D. * * * END OF REPORT * * *
--- NOTE | ~2016-09-16 | HC ---
[facility] [place] [address] CONSULTATION Name: GALO JOLLEY Room #: 249-P ADM IN M.R.#: [id number] Admission: 09/16/16 Attend Phys: Colten Barros MD Discharge: Date of : 41 Report #: [id number] THIS REPORT FOR: //name// CC: Colten Carr REASON FOR CONSULTATION: I was asked to see him concerning septic shock and aspiration pneumonia with respiratory failure. HISTORY OF PRESENT ILLNESS: The patient was a 76-year-old transferred from [facility] with septic shock, respiratory failure and aspiration. He was a 76-year-old that was initially treated at [facility] where he presented in congestive heart failure with pulmonary edema. 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 Postoperatively, developed a sacral decubitus which required surgical debridement and a diverting colostomy. He had debridements on 07/19/2016 through this month. On 09/04/2016, he was transferred to the [facility] for further wound care and antibiotic treatment. Since then, he has developed further confusion, developed respiratory failure and was transferred to [facility] by EMS. Here, he had a temperature of 38.5 degrees, blood pressure dropped down into 70/42. He has received 1 liter of IV fluids, second liter now being infused and has been placed on Levophed drip. He received IV antibiotics yesterday including vancomycin and Zosyn. These had been continued. It is noted when he was intubated, he had gross emesis and aspiration. His PEG tube has been placed to gravity drainage. Has had liquid stool from his colostomy. He is on 100% FIO2 and encephalopathic. ALLERGIES: None. MEDICATIONS: As noted on his MAR including the vancomycin and Zosyn. He does have an indwelling Aceves catheter and has been with moderate amount of urine output. His colostomy is functioning. He has a PEG tube now to drainage. Remains encephalopathic. No other rashes, although his left lower extremity remained mottled and cool. I am awaiting an arterial Doppler report. PAST MEDICAL HISTORY: Diabetes, coronary artery disease, delirium, anemia, hypertension, congestive heart failure, peripheral vascular disease. FAMILY HISTORY: Noncontributory. SOCIAL HISTORY: He is a past smoker. No significant alcohol intake. PHYSICAL EXAMINATION: He is now afebrile after receiving Tylenol. Blood pressure is in the 100 systolic with a heart rate of 120. He is on Levophed [address] [address] CONSULTATION Name: GALO JOLLEY Room #: 249-P [facility] IN M.R.#: [id number] Admission: 09/16/16 Attend Phys: Colten Barros MD Discharge: Date of : 41 Report #: [id number] drip at 25 mcg. He did not arouse but did move spontaneously upper and lower extremities. Pupils were reactive to light. He had conjugate gaze. Orally intubated. Lungs are coarse bilaterally greatest on the right. Heart was regular and tachycardic. Sternal incision well approximated. He still had some scabs over the mediastinal chest tube sites. Left upper abdomen PEG site was unremarkable. Colostomy unremarkable. Abdomen was soft. PEG tube was to drainage. Left lower extremity was mottled from thigh down to his toes. Left foot was cool. Could not palpate peripheral pulses there. He had had peripheral pulses in the foot. Wound to the sacrum was large, packed. LABORATORY STUDIES: Abdominal x-ray unremarkable with scattering gas. Chest x-ray, right upper extremity PICC was in the right SVC. Basilar atelectasis and infiltrate involving the medial left lung and right base. Also, a density in the medial right upper lung. Urinalysis, many wbc's, many bacteria. Sodium 141, potassium 6.5, bicarbonate 29, creatinine 3.6. Liver function tests normal. Albumin 1.9, lactate 3.8. INR 1.2, hemoglobin 9.3, white count 22,000, platelet count 549,000, 76% segs, 9% bands. ABG on 100% FIO2 showed pO2 73, pCO2 43, pH 7.39, lactate 4.8. Blood, urine and sputum cultures are pending. IMPRESSION: A 76-year-old with multiple issues initiating congestive heart failure requiring coronary artery bypass grafting followed by development of a large sacral decubitus that required surgical debridement on multiple accounts along with PEG tube placement and diverting colostomy. Now with gross aspiration pneumonia, healthcare associated with respiratory failure and septic shock. PLAN: Recommend continuing broad antibiotic coverage. We will transfer in Intensive Care Unit from the Emergency Room for full support. I have discussed the case with nursing staff continuing fluid resuscitation and pressors as necessary. He will be on a combination antibiotic therapy pending culture results. <ELECTRONICALLY SIGNED> By: Tramaine Carlos MD 09/17/16 1751 1220 1346 Tramaine Carlos MD /nt
--- NOTE | ~2016-09-16 | 2DMMODE ---
[facility] [place] [address] 2 D/M-MODE ECHOCARDIOGRAM Name: GALO JOLLEY Room #: 249-P [facility] IN M.R.#: [id number] Admission: 09/16/16 Attend Phys: Colten Barros MD Discharge: Date of : 42 Date of Service: 09/17/16 0851 Report #: [id number] THIS REPORT FOR: //name// Transthoracic Echocardiography Ordering physician: Oriana Linda Referring physician: Oriana Linda John C. Communication Analyst: Talya Hinkle Indications/History: Respiratory distress, sepsis, CHF. Hx: CABG 2016, CHF, HTN, DM BP: 145 / HR: 92bpm Height: 70in Weight: 221.5lb 48 Study data: M-mode, complete 2D, complete spectral Doppler, and color Doppler. Location: Bedside. Routine. Image quality was adequate. Patient in ICU on vent. 2D measurements Normal Normal LVID ED 50.9mm 36-57 IVS ED 12.4mm 6-11 LVID ES 38.8mm 23-40 LVPW ED 12.2mm 6-11 LA volume 27ml/m2 16-28 AoRoot diam 36.8mm 21-37 index ED LVOT diameter 22mm 18-23 Findings: Left ventricle: The cavity size was normal. There was mild focal basal hypertrophy of the septum. Systolic function was normal. The estimated ejection fraction was in the range of 60%. Wall motion was normal. Right ventricle: The cavity size was normal. Systolic function was normal. Right atrium: The atrium was normal in size. Left atrium: The atrium was normal in size. Volume index: 27ml/m2 (S). Aortic valve: Thickened and moderately calcified leaflets. Doppler: There was moderate stenosis. Aortic valve area of 1.4cm2. No regurgitation. Peak velocity: 309.6cm/s (S). [facility] [address] [place] [address] 2 D/M-MODE ECHOCARDIOGRAM Name: GALO JOLLEY Room #: 249-P ADM IN M.R.#: [id number] Admission: 09/16/16 Attend Phys: Colten Barros MD Discharge: Date of : 42 Date of Service: 09/17/16 0851 Report #: [id number] Mean gradient: 23.8mm Hg (S). Peak gradient: 38.3mm Hg (S). Mitral valve: Mildly calcified annulus. Mildly thickened, mildly calcified leaflets . Doppler: There was no evidence for stenosis. Mild to moderate regurgitation. Peak E-wave velocity: 78.5cm/s. Peak gradient: 2.5mm Hg (D). Peak A-wave velocity: 82.5cm/s. Tricuspid valve: Structurally normal valve. Doppler: There was no evidence for stenosis. Mild regurgitation. Regurgitant peak velocity: 282.2cm/s. Peak RV-RA gradient: 32mm Hg (S). Pulmonic valve: Poorly visualized. Doppler: There was no evidence for stenosis. Pericardium: There was no pericardial effusion. Aorta: Aortic root: The aortic root was normal in size. Pulmonary artery: Systolic pressure was estimated to be 42mm Hg. Diastolic function: Doppler parameters are consistent with abnormal left ventricular relaxation (grade 1 diastolic dysfunction). Systemic veins: Inferior vena cava: The vessel was dilated; the respirophasic diameter changes were blunted (< 50%). Conclusions 1. Left ventricle: The cavity size was normal. Systolic function was normal. The estimated ejection fraction was in the range of 60%. 2. Right ventricle: The cavity size was normal. 3. Left atrium: The atrium was normal in size. 4. Aortic valve: Thickened and moderately calcified leaflets. There was moderate stenosis. Aortic valve area of 1.4cm2. Mean gradient: 23.8mm Hg (S). 5. Mitral valve: Mildly calcified annulus. Mildly thickened, mildly calcified leaflets . Mild to moderate regurgitation. 6. Tricuspid valve: Mild regurgitation. 7. Pericardium, extracardiac: There was no pericardial effusion. <ELECTRONICALLY SIGNED> By: Erasto Means MD 09/17/16 0945 0851 0945 Erasto Means MD /wilbert
[~2016-09-16 08:54] MED LIST: ALBUTEROL2.5 MG/0.5 INH; APAP650 PER TUBE; ASPIR 8181 MG PO; ATORVASTATIN CA40 MG PER TUBE; BACITRACIN 500U30 G1 TOP; CARVEDILOL3.125 MG PER TUBE; CENTRUM SILVER1 EAC2 PER TUBE; COZAAR 50 MG TA50 M2 PER TUBE; DAKIN'S473 M1 TOP; DEX GLUCOSE IV; FLOMAX0.4 MG PO; GLUCAGEN1 M2 IV; GLUCOSE BITS1 GM PO; GLUCOSE1 EACH PO; HALOPERIDOL 2 MG2 M1 PER TUBE; JUVEN PACKET1 EACH PER TUBE; LASIX 20 MG TAB20 MG PER TUBE; MELATONIN3 MG PER TUBE; MICONAZOLE5 GM TOP; NORCO 5-325 TA1 EACH PER TUBE; NORVASC10 MG PER TUBE; NOVOLOG100 UNIT/1 SUBQ; POTASSIUM20 PER TUBE; PREVACID30 MG PER TUBE; TRADJENTA5 MG PER TUBE; VITAMINC500 PO; ZINC SULFATE 2220 M1 PER TUBE
[2016-09-16 09:27] LABS: HEMATOCRIT 29.9 % (42.0-52.0); HEMOGLOBIN 9.3 gm/dL (14.0-18.0); MCH 29.6 pg (26.0-34.0); MCHC 31.2 % (28.0-37.0); MCV 94.9 fL (80.0-100.0); PLATELET COUNT 549 thou/uL (150-400); RBC 3.15 mil/uL (4.50-6.00); RDW 17.2 % (10.5-14.5); WBC 22.2 thou/uL (4.0-11.0)
[2016-09-16 09:29] LABS: ANION GAP 8 mmol/L (7-16); BUN 123 mg/dL (7-18); CALCIUM 11.3 mg/dL (8.5-10.1); CHLORIDE 104 mmol/L (98-107); CO2 29 mmol/L (21-32); CREATININE 3.6 mg/dL (0.6-1.3); GLUCOSE 294 mg/dL (70-99); SODIUM 141 mmol/L (136-145)
[2016-09-16 09:31] LABS: POC ANION GAP 14 mmol/L (7-16); POC BUN > 99 mg/dL (7-18); POC CA IONIZED 5.4 mg/dL (4.5-5.3); POC CHLORIDE 104 mmol/L (98-107); POC CREATININE 3.3 mg/dL (0.6-1.3); POC GLUCOSE 299 mg/dL (70-99); POC HEMOGLOBIN 10.2 gm/dL (14.0-18.0); POC POTASSIUM 6.2 mmol/L (3.5-5.1); POC SODIUM 140 mmol/L (136-145); POC TCO2 29 mmol/L (21-32)
[2016-09-16 09:36] LABS: MANUAL DIFF YES
[2016-09-16 09:50] LABS: ALBUMIN 1.9 g/dL (3.4-5.0); ALKALINE PHOSPHATASE 81 U/L (46-116); APTT 36.2 Seconds (24.5-32.8); CK-MB MASS 0.5 ng/mL (<0.5-3.6); INR 1.2; MAGNESIUM 3.2 mg/dL (1.8-2.4); NT-PRO BRAIN NAT PEPTIDE 3264 pg/mL (<300); PROTIME 12.4 Seconds (9.3-11.4); SGOT 17 U/L (15-37); SGPT 15 U/L (30-65); TOTAL BILIRUBIN 0.5 mg/dL (<0.1-1.0); TOTAL PROTEIN 7.5 g/dL (6.4-8.2); TROPONIN-I < 0.04 ng/mL (<0.04-0.07)
[2016-09-16 09:51] LABS: POTASSIUM 6.5 mmol/L (3.5-5.1)
[2016-09-16 09:55] LABS: ABSOLUTE NEUTROPHILS 18.9 thou/uL (1.4-8.2); PLATELET ESTIMATE INCREASED; TOTAL CELL COUNT 100
[2016-09-16 10:02] LABS: URINE BILIRUBIN NEGATIVE (Negative); URINE BLOOD NEGATIVE (Negative); URINE COLOR YELLOW; URINE GLUCOSE-RANDOM* NEGATIVE (Negative); URINE KETONES TRACE (Negative); URINE LEUKOCYTES-REFLEX 2+ (Negative); URINE PROTEIN (DIPSTICK) TRACE (Negative); URINE SPECIFIC GRAVITY >= 1.030 (1.003-1.035); URINE UROBILINOGEN 0.2 E.U./dl (0.2-1.0)
[2016-09-16 10:04] LABS: ABG SAMPLE TYPE ARTERIAL; BE(vivo) 0.3 mmol/L (-2 to +3); HCO3 25.4 mmol/L (22.0-26.0); O2(CT) 12.6 mL/dL (15.0-23.0); O2Hb 93.4 % (92.0-98.0); PCO2 43.1 mmHg (35.0-45.0); PO2 73.3 mmHg (80.0-100.0); pH 7.388 (7.360-7.450); sO2 94.6 % (92.0-98.0); tCO2 26.7 mmol/L (24.0-30.0)
[2016-09-16 10:05] LABS: LACTATE 4.84 mmol/L (0.5-2.0); STICK SITE L.RADIAL; TIDAL VOLUME 600 ml
[2016-09-16 10:14] LABS: CASTS None Seen /LPF (None Seen); SQUAMOUS None Seen /LPF (0-3); URINE WBC-REFLEX >25 Many /HPF (0-5)
[2016-09-16 10:15] LABS: AMORPHOUS URATES Few /LPF (None Seen); URINE RBC 0-2 Rare /HPF (0-2)
[2016-09-16 15:13] LABS: ABG SAMPLE TYPE VENOUS; BE(vivo) -4.3 mmol/L (-2 to +3); HCO3 21.2 mmol/L (22.0-26.0); LACTATE 2.68 mmol/L (0.5-2.0); O2(CT) 8.2 mL/dL (15.0-23.0); O2Hb VENOUS 70.1 (65.0-85.0); PCO2 VENOUS 40.6 mmHg (41.0-51.0); PO2 VENOUS 40.6 mmHg (35.0-45.0); STICK SITE LINE; TIDAL VOLUME 600 ml; sO2 VENOUS 72.6 % (65.0-85.0); tCO2 22.4 mmol/L (24.0-30.0)
[2016-09-16 16:13] LABS: ABG SAMPLE TYPE VENOUS; BE(vivo) -4.5 mmol/L (-2 to +3); HCO3 20.9 mmol/L (22.0-26.0); LACTATE 2.49 mmol/L (0.5-2.0); O2(CT) 7.7 mL/dL (15.0-23.0); O2Hb VENOUS 69.1 (65.0-85.0); PCO2 VENOUS 39.9 mmHg (41.0-51.0); PO2 VENOUS 39.5 mmHg (35.0-45.0); sO2 VENOUS 71.2 % (65.0-85.0); tCO2 22.2 mmol/L (24.0-30.0)
[2016-09-16 16:14] LABS: STICK SITE LINE
[2016-09-16 16:38] LABS: CREATININE 3.3 mg/dL (0.6-1.3)
[2016-09-16 16:44] LABS: CALCIUM 8.2 mg/dL (8.5-10.1); POTASSIUM 4.5 mmol/L (3.5-5.1)
[2016-09-16 17:23] LABS: ABG SAMPLE TYPE VENOUS; BE(vivo) -5.8 mmol/L (-2 to +3); HCO3 19.7 mmol/L (22.0-26.0); LACTATE 2.67 mmol/L (0.5-2.0); O2(CT) 7.6 mL/dL (15.0-23.0); O2Hb VENOUS 67.8 (65.0-85.0); PCO2 VENOUS 38.8 mmHg (41.0-51.0); PO2 VENOUS 38.8 mmHg (35.0-45.0); STICK SITE LINE; sO2 VENOUS 69.4 % (65.0-85.0); tCO2 20.9 mmol/L (24.0-30.0)
[2016-09-16 17:24] LABS: TIDAL VOLUME 600 ml
[2016-09-16 19:20] LABS: ABG SAMPLE TYPE VENOUS; BE(vivo) -3.7 mmol/L (-2 to +3); HCO3 23.4 mmol/L (22.0-26.0); O2(CT) 7.9 mL/dL (15.0-23.0); O2Hb VENOUS 61.5 (65.0-85.0); PCO2 VENOUS 53.4 mmHg (41.0-51.0); PO2 VENOUS 36.8 mmHg (35.0-45.0); sO2 VENOUS 61.2 % (65.0-85.0); tCO2 25.1 mmol/L (24.0-30.0)
[2016-09-16 19:21] LABS: LACTATE 4.18 mmol/L (0.5-2.0); STICK SITE LINE
[2016-09-16 20:16] LABS: CALCIUM 9.2 mg/dL (8.5-10.1); CREATININE 3.4 mg/dL (0.6-1.3); POTASSIUM 4.6 mmol/L (3.5-5.1)
[2016-09-16 20:35] LABS: ABG SAMPLE TYPE VENOUS; BE(vivo) -9.5 mmol/L (-2 to +3); HCO3 16.8 mmol/L (22.0-26.0); O2(CT) 6.1 mL/dL (15.0-23.0); O2Hb VENOUS 67.6 (65.0-85.0); PCO2 VENOUS 39.1 mmHg (41.0-51.0); PO2 VENOUS 40.9 mmHg (35.0-45.0); STICK SITE LINE; sO2 VENOUS 68.5 % (65.0-85.0)
[2016-09-17] VITALS (95 sets, daily range): BP systolic 89–161; BP diastolic 34–86
[2016-09-17 04:22] LABS: HEMATOCRIT 25.4 % (42.0-52.0); MCH 29.3 pg (26.0-34.0); MCHC 31.6 % (28.0-37.0); MCV 92.7 fL (80.0-100.0); PLATELET COUNT 465 thou/uL (150-400); RBC 2.73 mil/uL (4.50-6.00); RDW 17.1 % (10.5-14.5); WBC 23.7 thou/uL (4.0-11.0)
[2016-09-17 04:25] LABS: MANUAL DIFF YES
[2016-09-17 04:38] LABS: ALBUMIN 1.3 g/dL (3.4-5.0); CALCIUM 8.5 mg/dL (8.5-10.1); CREATININE 2.7 mg/dL (0.6-1.3); MAGNESIUM 2.5 mg/dL (1.8-2.4); PHOSPHORUS 3.7 mg/dL (2.5-4.9); POTASSIUM 4.6 mmol/L (3.5-5.1); TOTAL BILIRUBIN 0.4 mg/dL (<0.1-1.0); TOTAL PROTEIN 5.9 g/dL (6.4-8.2)
[2016-09-17 04:46] LABS: ABSOLUTE NEUTROPHILS 20.1 thou/uL (1.4-8.2); METAMYELOCYTES 1 %; TOTAL CELL COUNT 100
[2016-09-17 04:47] LABS: POLYCHROMASIA 1+; TOXIC GRANULATION 1+
[2016-09-17 05:51] LABS: ABG SAMPLE TYPE ARTERIAL; BE(vivo) -4.8 mmol/L (-2 to +3); HCO3 21.4 mmol/L (22.0-26.0); LACTATE 1.55 mmol/L (0.5-2.0); O2(CT) 14.1 mL/dL (15.0-23.0); O2Hb 98.5 % (92.0-98.0); PCO2 44.4 mmHg (35.0-45.0); PO2 182.2 mmHg (80.0-100.0); STICK SITE RRA; sO2 99.1 % (92.0-98.0); tCO2 22.8 mmol/L (24.0-30.0)
[2016-09-17 05:52] LABS: TIDAL VOLUME 600 ml
[2016-09-17 18:32] LABS: CALCIUM 6.9 mg/dL (8.5-10.1); CREATININE 1.9 mg/dL (0.6-1.3); PHOSPHORUS 3.9 mg/dL (2.5-4.9); POTASSIUM 3.6 mmol/L (3.5-5.1)
[2016-09-18] VITALS (85 sets, daily range): BP systolic 87–152; BP diastolic 36–81
[2016-09-18 05:10] LABS: HEMATOCRIT 24.4 % (42.0-52.0); HEMOGLOBIN 7.7 gm/dL (14.0-18.0); MCH 29.4 pg (26.0-34.0); MCHC 31.6 % (28.0-37.0); MCV 93.1 fL (80.0-100.0); PLATELET COUNT 402 thou/uL (150-400); RBC 2.62 mil/uL (4.50-6.00); RDW 16.9 % (10.5-14.5); WBC 23.3 thou/uL (4.0-11.0)
[2016-09-18 05:12] LABS: MANUAL DIFF YES
[2016-09-18 05:22] LABS: ALBUMIN 1.3 g/dL (3.4-5.0); CALCIUM 8.3 mg/dL (8.5-10.1); CREATININE 1.5 mg/dL (0.6-1.3); MAGNESIUM 2.5 mg/dL (1.8-2.4); PHOSPHORUS 2.9 mg/dL (2.5-4.9); POTASSIUM 4.3 mmol/L (3.5-5.1)
[2016-09-18 05:42] LABS: ABG SAMPLE TYPE ARTERIAL; BE(vivo) -5.4 mmol/L (-2 to +3); HCO3 20.2 mmol/L (22.0-26.0); LACTATE 1.41 mmol/L (0.5-2.0); O2(CT) 11.5 mL/dL (15.0-23.0); O2Hb 91.4 % (92.0-98.0); PCO2 39.4 mmHg (35.0-45.0); PO2 65.6 mmHg (80.0-100.0); pH 7.327 (7.360-7.450); sO2 91.6 % (92.0-98.0); tCO2 21.4 mmol/L (24.0-30.0)
[2016-09-18 05:43] LABS: STICK SITE R.RADIAL; TIDAL VOLUME 600 ml
[2016-09-18 06:28] LABS: ABSOLUTE NEUTROPHILS 20.3 thou/uL (1.4-8.2); ANISOCYTOSIS 2+; MACROCYTES 1+; MYELOCYTES 1 %; POLYCHROMASIA OCCASIONAL; TOTAL CELL COUNT 100
[2016-09-19] VITALS (43 sets, daily range): BP systolic 92–154; BP diastolic 33–68
[2016-09-19 05:25] LABS: HEMATOCRIT 25.1 % (42.0-52.0); HEMOGLOBIN 7.7 gm/dL (14.0-18.0); MCH 28.9 pg (26.0-34.0); MCHC 30.7 % (28.0-37.0); MCV 94.4 fL (80.0-100.0); PLATELET COUNT 341 thou/uL (150-400); RBC 2.66 mil/uL (4.50-6.00); RDW 16.8 % (10.5-14.5); WBC 19.6 thou/uL (4.0-11.0)
[2016-09-19 05:35] LABS: MANUAL DIFF YES
[2016-09-19 05:39] LABS: ALBUMIN 1.2 g/dL (3.4-5.0); CALCIUM 8.6 mg/dL (8.5-10.1); CREATININE 1.1 mg/dL (0.6-1.3); MAGNESIUM 2.5 mg/dL (1.8-2.4); PHOSPHORUS 1.7 mg/dL (2.5-4.9); TOTAL BILIRUBIN 0.2 mg/dL (<0.1-1.0); TOTAL PROTEIN 5.8 g/dL (6.4-8.2)
[2016-09-19 05:43] LABS: ABG SAMPLE TYPE ARTERIAL; BE(vivo) -5.9 mmol/L (-2 to +3); HCO3 19.6 mmol/L (22.0-26.0); LACTATE 1.56 mmol/L (0.5-2.0); O2(CT) 13.6 mL/dL (15.0-23.0); PCO2 38.5 mmHg (35.0-45.0); PO2 81.2 mmHg (80.0-100.0); sO2 95.2 % (92.0-98.0); tCO2 20.8 mmol/L (24.0-30.0)
[2016-09-19 05:44] LABS: ABG COMMENT A/C RATE 18; STICK SITE R.RADIAL; TIDAL VOLUME 600 ml; pH 7.324 (7.360-7.450)
[2016-09-19 05:45] LABS: POTASSIUM 3.8 mmol/L (3.5-5.1)
[2016-09-19 06:43] LABS: ABSOLUTE NEUTROPHILS 17.4 thou/uL (1.4-8.2); METAMYELOCYTES 1 %; TOTAL CELL COUNT 100
[2016-09-19 06:44] LABS: ANISOCYTOSIS 1+
[2016-09-19 06:45] LABS: POLYCHROMASIA OCCASIONAL
[2016-09-20] VITALS (39 sets, daily range): BP systolic 120–171; BP diastolic 35–84
[2016-09-20 04:22] LABS: MCV 95.8 fL (80.0-100.0)
[2016-09-20 04:24] LABS: HEMATOCRIT 23.7 % (42.0-52.0); MCH 29.2 pg (26.0-34.0); MCHC 30.5 % (28.0-37.0); PLATELET COUNT 309 thou/uL (150-400); RBC 2.48 mil/uL (4.50-6.00); RDW 16.9 % (10.5-14.5); WBC 18.4 thou/uL (4.0-11.0)
[2016-09-20 04:25] LABS: ABG SAMPLE TYPE ARTERIAL; BE(vivo) -6.3 mmol/L (-2 to +3); HCO3 19.6 mmol/L (22.0-26.0); LACTATE 1.24 mmol/L (0.5-2.0); O2(CT) 15.1 mL/dL (15.0-23.0); O2Hb 95.7 % (92.0-98.0); PCO2 40.3 mmHg (35.0-45.0); sO2 96.4 % (92.0-98.0); tCO2 20.8 mmol/L (24.0-30.0)
[2016-09-20 04:26] LABS: STICK SITE R.RADIAL; TIDAL VOLUME 600 ml
[2016-09-20 04:27] LABS: ABG COMMENT A/C RATE 14; pH 7.304 (7.360-7.450)
[2016-09-20 04:33] LABS: HEMOGLOBIN 7.2 gm/dL (14.0-18.0); MANUAL DIFF YES
[2016-09-20 04:38] LABS: ALBUMIN 1.1 g/dL (3.4-5.0); CALCIUM 9.2 mg/dL (8.5-10.1); MAGNESIUM 2.7 mg/dL (1.8-2.4); PHOSPHORUS 1.8 mg/dL (2.5-4.9); POTASSIUM 3.8 mmol/L (3.5-5.1); TOTAL BILIRUBIN 0.2 mg/dL (<0.1-1.0); TOTAL PROTEIN 5.6 g/dL (6.4-8.2)
[2016-09-20 06:51] LABS: ABSOLUTE NEUTROPHILS 15.6 thou/uL (1.4-8.2); METAMYELOCYTES 2 %; MYELOCYTES 5 %; TOTAL CELL COUNT 100
[2016-09-20 06:52] LABS: ANISOCYTOSIS 1+
[2016-09-20 06:53] LABS: POLYCHROMASIA SLIGHT
[2016-09-20 13:41] LABS: HEMATOCRIT 23.4 % (42.0-52.0); HEMOGLOBIN 7.5 gm/dL (14.0-18.0)
[2016-09-21] VITALS (50 sets, daily range): BP systolic 108–163; BP diastolic 39–110
[2016-09-21 06:39] LABS: HEMATOCRIT 23.9 % (42.0-52.0); MCH 31.8 pg (26.0-34.0); MCHC 33.5 % (28.0-37.0); MCV 94.7 fL (80.0-100.0); PLATELET COUNT 280 thou/uL (150-400); RBC 2.53 mil/uL (4.50-6.00); RDW 17.1 % (10.5-14.5); WBC 18.9 thou/uL (4.0-11.0)
[2016-09-21 06:40] LABS: MANUAL DIFF YES
[2016-09-21 06:55] LABS: CALCIUM 8.9 mg/dL (8.5-10.1); CREATININE 0.7 mg/dL (0.6-1.3); MAGNESIUM 2.3 mg/dL (1.8-2.4); PHOSPHORUS 1.8 mg/dL (2.5-4.9); POTASSIUM 4.1 mmol/L (3.5-5.1); TOTAL BILIRUBIN 0.5 mg/dL (<0.1-1.0); TOTAL PROTEIN 5.5 g/dL (6.4-8.2)
[2016-09-21 07:02] LABS: ABSOLUTE NEUTROPHILS 16.1 thou/uL (1.4-8.2); ANISOCYTOSIS 2+; METAMYELOCYTES 1 %; TOTAL CELL COUNT 100
[2016-09-21 07:03] LABS: POIKILOCYTOSIS 1+
[2016-09-22] VITALS (39 sets, daily range): BP systolic 113–162; BP diastolic 38–64
[2016-09-22 06:07] LABS: HEMATOCRIT 25.3 % (42.0-52.0); HEMOGLOBIN 7.7 gm/dL (14.0-18.0); MCH 29.1 pg (26.0-34.0); MCHC 30.4 % (28.0-37.0); MCV 95.8 fL (80.0-100.0); PLATELET COUNT 300 thou/uL (150-400); RBC 2.64 mil/uL (4.50-6.00); RDW 17.1 % (10.5-14.5); WBC 21.6 thou/uL (4.0-11.0)
[2016-09-22 06:12] LABS: MANUAL DIFF YES
[2016-09-22 06:22] LABS: ALBUMIN 1.1 g/dL (3.4-5.0); CALCIUM 10.1 mg/dL (8.5-10.1); CREATININE 0.8 mg/dL (0.6-1.3); PHOSPHORUS 2.6 mg/dL (2.5-4.9); POTASSIUM 4.2 mmol/L (3.5-5.1)
[2016-09-22 06:52] LABS: ABSOLUTE NEUTROPHILS 18.1 thou/uL (1.4-8.2); METAMYELOCYTES 1 %; MYELOCYTES 3 %; PLATELET ESTIMATE NORMAL; PROMYELOCYTES 2 %; TOTAL CELL COUNT 100
[2016-09-22 09:05] LABS: ABG SAMPLE TYPE ARTERIAL; BE(vivo) -8.5 mmol/L (-2 to +3); HCO3 17.7 mmol/L (22.0-26.0); LACTATE 0.78 mmol/L (0.5-2.0); O2Hb 94.7 % (92.0-98.0); PCO2 39.1 mmHg (35.0-45.0); PO2 89.5 mmHg (80.0-100.0); sO2 95.8 % (92.0-98.0); tCO2 18.9 mmol/L (24.0-30.0)
[2016-09-22 09:06] LABS: STICK SITE R.RADIAL; pH 7.273 (7.360-7.450)
[2016-09-22 09:07] LABS: TIDAL VOLUME 600 ml
[2016-09-23] VITALS (49 sets, daily range): BP systolic 128–188; BP diastolic 40–112
[2016-09-23 04:05] LABS: MCV 96.9 fL (80.0-100.0)
[2016-09-23 04:06] LABS: HEMATOCRIT 23.2 % (42.0-52.0); MCHC 29.9 % (28.0-37.0); PLATELET COUNT 259 thou/uL (150-400); RBC 2.39 mil/uL (4.50-6.00); RDW 17.7 % (10.5-14.5); WBC 18.4 thou/uL (4.0-11.0)
[2016-09-23 04:10] LABS: MANUAL DIFF YES
[2016-09-23 04:12] LABS: HEMOGLOBIN 6.9 gm/dL (14.0-18.0)
[2016-09-23 04:21] LABS: CALCIUM 10.1 mg/dL (8.5-10.1); CREATININE 0.8 mg/dL (0.6-1.3); PHOSPHORUS 2.9 mg/dL (2.5-4.9); POTASSIUM 4.4 mmol/L (3.5-5.1)
[2016-09-23 04:50] LABS: ABSOLUTE NEUTROPHILS 14.9 thou/uL (1.4-8.2); ANISOCYTOSIS 1+; ATYPICAL MONONUCLEARS 1 %; METAMYELOCYTES 3 %; MYELOCYTES 3 %; TOTAL CELL COUNT 100
[2016-09-23 16:22] LABS: URINE BILIRUBIN NEGATIVE (Negative); URINE BLOOD NEGATIVE (Negative); URINE COLOR YELLOW; URINE GLUCOSE-RANDOM* NEGATIVE (Negative); URINE KETONES NEGATIVE (Negative); URINE NITRITE NEGATIVE (Negative); URINE PROTEIN (DIPSTICK) NEGATIVE (Negative); URINE UROBILINOGEN 0.2 E.U./dl (0.2-1.0)
[2016-09-23 16:39] LABS: HEMATOCRIT 26.3 % (42.0-52.0); HEMOGLOBIN 8.2 gm/dL (14.0-18.0)
[2016-09-23 17:55] LABS: HEMATOCRIT 27.4 % (42.0-52.0); HEMOGLOBIN 8.6 gm/dL (14.0-18.0); MCHC 31.5 % (28.0-37.0); MCV 95.3 fL (80.0-100.0); RBC 2.87 mil/uL (4.50-6.00); WBC 21.1 thou/uL (4.0-11.0)
[2016-09-23 18:03] LABS: CALCIUM 10.3 mg/dL (8.5-10.1); CREATININE 0.7 mg/dL (0.6-1.3); POTASSIUM 4.1 mmol/L (3.5-5.1)
[2016-09-23 18:06] LABS: INR 1.1; PROTIME 11.8 Seconds (9.3-11.4)
[2016-09-24] VITALS (49 sets, daily range): BP systolic 117–178; BP diastolic 37–126
[2016-09-24 04:38] LABS: HEMATOCRIT 26.9 % (42.0-52.0); HEMOGLOBIN 8.4 gm/dL (14.0-18.0); MCH 29.4 pg (26.0-34.0); MCHC 31.2 % (28.0-37.0); MCV 94.3 fL (80.0-100.0); PLATELET COUNT 275 thou/uL (150-400); RBC 2.85 mil/uL (4.50-6.00); RDW 16.9 % (10.5-14.5); WBC 18.6 thou/uL (4.0-11.0)
[2016-09-24 05:04] LABS: ALBUMIN 1.2 g/dL (3.4-5.0); CALCIUM 10.8 mg/dL (8.5-10.1); CREATININE 0.6 mg/dL (0.6-1.3); MAGNESIUM 1.9 mg/dL (1.8-2.4); POTASSIUM 4.1 mmol/L (3.5-5.1); TOTAL BILIRUBIN 0.2 mg/dL (<0.1-1.0); TOTAL PROTEIN 6.2 g/dL (6.4-8.2)
[2016-09-24 05:12] LABS: MANUAL DIFF YES
[2016-09-24 05:34] LABS: ABG SAMPLE TYPE ARTERIAL; BE(vivo) -4.4 mmol/L (-2 to +3); HCO3 21.6 mmol/L (22.0-26.0); LACTATE 1.28 mmol/L (0.5-2.0); O2Hb 96.8 % (92.0-98.0); PCO2 43.5 mmHg (35.0-45.0); PO2 106.3 mmHg (80.0-100.0); sO2 97.4 % (92.0-98.0); tCO2 22.9 mmol/L (24.0-30.0)
[2016-09-24 05:35] LABS: STICK SITE R.RADIAL; TIDAL VOLUME 500 ml; pH 7.313 (7.360-7.450)
[2016-09-24 07:22] LABS: METAMYELOCYTES 1 %; MYELOCYTES 4 %; TOTAL CELL COUNT 100
[2016-09-24 07:23] LABS: ANISOCYTOSIS 1+; MACROCYTES SLIGHT; MICROCYTES SLIGHT; POLYCHROMASIA SLIGHT
[2016-09-24 07:24] LABS: HYPOCHROMASIA SLIGHT
[2016-09-25] VITALS (24 sets, daily range): BP systolic 121–151; BP diastolic 35–68
[2016-09-25 04:34] LABS: HEMATOCRIT 25.3 % (42.0-52.0); HEMOGLOBIN 7.9 gm/dL (14.0-18.0); MCH 29.5 pg (26.0-34.0); MCHC 31.1 % (28.0-37.0); MCV 94.9 fL (80.0-100.0); PLATELET COUNT 247 thou/uL (150-400); RBC 2.67 mil/uL (4.50-6.00); RDW 17.1 % (10.5-14.5); WBC 18.3 thou/uL (4.0-11.0)
[2016-09-25 04:36] LABS: MANUAL DIFF YES
[2016-09-25 04:37] LABS: CALCIUM 10.1 mg/dL (8.5-10.1); CREATININE 0.6 mg/dL (0.6-1.3); MAGNESIUM 1.6 mg/dL (1.8-2.4)
[2016-09-25 05:16] LABS: ABG SAMPLE TYPE ARTERIAL; BE(vivo) -4.4 mmol/L (-2 to +3); HCO3 21.1 mmol/L (22.0-26.0); LACTATE 1.21 mmol/L (0.5-2.0); O2(CT) 12.3 mL/dL (15.0-23.0); O2Hb 98.1 % (92.0-98.0); PCO2 40.2 mmHg (35.0-45.0); PO2 129.8 mmHg (80.0-100.0); STICK SITE R.RADIAL; pH 7.337 (7.360-7.450); sO2 98.4 % (92.0-98.0); tCO2 22.3 mmol/L (24.0-30.0)
[2016-09-25 05:17] LABS: TIDAL VOLUME 500 ml
[2016-09-25 05:30] LABS: ABSOLUTE NEUTROPHILS 15.9 thou/uL (1.4-8.2); METAMYELOCYTES 1 %; MYELOCYTES 1 %; TOTAL CELL COUNT 100
[2016-09-25 05:31] LABS: ANISOCYTOSIS 2+; HYPOCHROMASIA 1+; LARGE PLATELETS OCCASIONAL; POLYCHROMASIA OCCASIONAL
[2016-09-26] VITALS (12 sets, daily range): BP systolic 116–166; BP diastolic 41–57
[2016-09-26 05:01] LABS: ABG SAMPLE TYPE ARTERIAL; BE(vivo) -3.8 mmol/L (-2 to +3); HCO3 22.6 mmol/L (22.0-26.0); LACTATE 1.21 mmol/L (0.5-2.0); O2(CT) 12.5 mL/dL (15.0-23.0); PO2 79.5 mmHg (80.0-100.0); sO2 94.5 % (92.0-98.0)
[2016-09-26 05:02] LABS: STICK SITE R.RADIAL; TIDAL VOLUME 500 ml; pH 7.299 (7.360-7.450)
[2016-09-26 05:04] LABS: HEMATOCRIT 24.8 % (42.0-52.0); MCH 30.4 pg (26.0-34.0); MCHC 32.5 % (28.0-37.0); MCV 93.6 fL (80.0-100.0); PLATELET COUNT 255 thou/uL (150-400); RBC 2.65 mil/uL (4.50-6.00); RDW 16.9 % (10.5-14.5); WBC 17.4 thou/uL (4.0-11.0)
[2016-09-26 05:51] LABS: MANUAL DIFF YES
[2016-09-26 05:56] LABS: POTASSIUM 3.9 mmol/L (3.5-5.1)
[2016-09-26 05:57] LABS: CALCIUM 9.8 mg/dL (8.5-10.1); CREATININE 0.6 mg/dL (0.6-1.3); MAGNESIUM 1.9 mg/dL (1.8-2.4)
[2016-09-26 07:39] LABS: ABSOLUTE NEUTROPHILS 14.8 thou/uL (1.4-8.2); METAMYELOCYTES 1 %; MYELOCYTES 2 %; TOTAL CELL COUNT 100
[2016-09-26 07:40] LABS: ANISOCYTOSIS 1+
[2016-09-27] VITALS (59 sets, daily range): BP systolic 88–157; BP diastolic 39–57
[2016-09-27 05:37] LABS: ABG SAMPLE TYPE ARTERIAL; BE(vivo) -2.4 mmol/L (-2 to +3); HCO3 23.4 mmol/L (22.0-26.0); LACTATE 1.01 mmol/L (0.5-2.0); O2(CT) 12.5 mL/dL (15.0-23.0); O2Hb 94.7 % (92.0-98.0); PCO2 44.6 mmHg (35.0-45.0); PO2 84.5 mmHg (80.0-100.0); pH 7.337 (7.360-7.450); sO2 95.7 % (92.0-98.0); tCO2 24.7 mmol/L (24.0-30.0)
[2016-09-27 05:38] LABS: STICK SITE RRA; TIDAL VOLUME 500 ml
[2016-09-27 05:40] LABS: ABSOLUTE NEUTROPHILS 13.2 thou/uL (1.4-8.2); BASOPHILS 0.5 % (0.0-2.0); HEMATOCRIT 24.8 % (42.0-52.0); HEMOGLOBIN 7.8 gm/dL (14.0-18.0); LYMPHOCYTES 10.2 % (24.0-44.0); MCH 29.6 pg (26.0-34.0); MCHC 31.3 % (28.0-37.0); MCV 94.4 fL (80.0-100.0); MONOCYTES 5.9 % (1.0-8.0); PLATELET COUNT 240 thou/uL (150-400); POLYS 81.4 % (36.0-66.0); RBC 2.62 mil/uL (4.50-6.00); WBC 16.2 thou/uL (4.0-11.0)
[2016-09-27 05:46] LABS: CALCIUM 10.3 mg/dL (8.5-10.1); CREATININE 0.6 mg/dL (0.6-1.3); MAGNESIUM 1.9 mg/dL (1.8-2.4); POTASSIUM 3.8 mmol/L (3.5-5.1)
[2016-09-27 05:52] LABS: MANUAL DIFF NO
[2016-09-27 17:17] LABS: ABG SAMPLE TYPE ARTERIAL; BE(vivo) -3.1 mmol/L (-2 to +3); HCO3 22.8 mmol/L (22.0-26.0); LACTATE 1.06 mmol/L (0.5-2.0); O2(CT) 11.7 mL/dL (15.0-23.0); O2Hb 94.6 % (92.0-98.0); PCO2 44.8 mmHg (35.0-45.0); PO2 82.2 mmHg (80.0-100.0); sO2 95.3 % (92.0-98.0); tCO2 24.1 mmol/L (24.0-30.0)
[2016-09-27 17:18] LABS: STICK SITE R.RADIAL; TIDAL VOLUME 500 ml; pH 7.324 (7.360-7.450)
[2016-09-28] VITALS (89 sets, daily range): BP systolic 91–165; BP diastolic 37–107
[2016-09-28 05:11] LABS: ABG SAMPLE TYPE ARTERIAL; LACTATE 0.91 mmol/L (0.5-2.0); O2(CT) 11.6 mL/dL (15.0-23.0); O2Hb 94.6 % (92.0-98.0); PCO2 42.8 mmHg (35.0-45.0); PO2 81.5 mmHg (80.0-100.0); tCO2 22.3 mmol/L (24.0-30.0)
[2016-09-28 05:12] LABS: STICK SITE R.RADIAL; pH 7.308 (7.360-7.450)
[2016-09-28 05:13] LABS: FIO2 30 %; TIDAL VOLUME 500 ml
[2016-09-28 05:43] LABS: HEMATOCRIT 25.2 % (42.0-52.0); HEMOGLOBIN 7.8 gm/dL (14.0-18.0); MCH 29.9 pg (26.0-34.0); MCHC 31.1 % (28.0-37.0); MCV 96.1 fL (80.0-100.0); PLATELET COUNT 279 thou/uL (150-400); RBC 2.62 mil/uL (4.50-6.00); RDW 16.9 % (10.5-14.5)
[2016-09-28 06:00] LABS: ALBUMIN 1.2 g/dL (3.4-5.0); CALCIUM 10.1 mg/dL (8.5-10.1); CREATININE 0.8 mg/dL (0.6-1.3); MAGNESIUM 1.8 mg/dL (1.8-2.4); POTASSIUM 3.6 mmol/L (3.5-5.1); TOTAL BILIRUBIN 0.2 mg/dL (<0.1-1.0); TOTAL PROTEIN 6.2 g/dL (6.4-8.2)
[2016-09-28 06:10] LABS: MANUAL DIFF YES
[2016-09-28 09:44] LABS: ABSOLUTE NEUTROPHILS 19.1 thou/uL (1.4-8.2); MYELOCYTES 1 %; POLYCHROMASIA OCCASIONAL; TOTAL CELL COUNT 100
[2016-09-28 09:45] LABS: ANISOCYTOSIS 1+
[2016-09-28 11:38] LABS: URINE BILIRUBIN NEGATIVE (Negative); URINE BLOOD NEGATIVE (Negative); URINE COLOR YELLOW; URINE GLUCOSE-RANDOM* NEGATIVE (Negative); URINE KETONES NEGATIVE (Negative); URINE LEUKOCYTES-REFLEX NEGATIVE (Negative); URINE PROTEIN (DIPSTICK) NEGATIVE (Negative); URINE SPECIFIC GRAVITY 1.015 (1.003-1.035); URINE UROBILINOGEN 0.2 E.U./dl (0.2-1.0)
[2016-09-29] VITALS (54 sets, daily range): BP systolic 98–159; BP diastolic 34–55
[2016-09-29 04:44] LABS: HEMATOCRIT 23.5 % (42.0-52.0); HEMOGLOBIN 7.5 gm/dL (14.0-18.0); MCH 29.9 pg (26.0-34.0); MCHC 31.7 % (28.0-37.0); MCV 94.3 fL (80.0-100.0); PLATELET COUNT 283 thou/uL (150-400); RBC 2.49 mil/uL (4.50-6.00); RDW 18.1 % (10.5-14.5); WBC 23.1 thou/uL (4.0-11.0)
[2016-09-29 04:45] LABS: MANUAL DIFF YES
[2016-09-29 05:10] LABS: ALBUMIN 1.2 g/dL (3.4-5.0); CALCIUM 10.1 mg/dL (8.5-10.1); CREATININE 0.7 mg/dL (0.6-1.3); PHOSPHORUS 3.3 mg/dL (2.5-4.9); POTASSIUM 3.4 mmol/L (3.5-5.1)
[2016-09-29 05:30] LABS: ABSOLUTE NEUTROPHILS 19.2 thou/uL (1.4-8.2); METAMYELOCYTES 1 %; MYELOCYTES 1 %; TOTAL CELL COUNT 100
[2016-09-29 05:31] LABS: ANISOCYTOSIS 2+; LARGE PLATELETS FEW; POLYCHROMASIA 1+
[2016-09-30] VITALS (41 sets, daily range): BP systolic 102–155; BP diastolic 39–64
[2016-09-30 05:27] LABS: HEMATOCRIT 23.7 % (42.0-52.0); HEMOGLOBIN 7.5 gm/dL (14.0-18.0); MCH 29.7 pg (26.0-34.0); MCHC 31.8 % (28.0-37.0); MCV 93.4 fL (80.0-100.0); PLATELET COUNT 286 thou/uL (150-400); RBC 2.54 mil/uL (4.50-6.00); RDW 17.5 % (10.5-14.5); WBC 17.4 thou/uL (4.0-11.0)
[2016-09-30 05:30] LABS: ALBUMIN 1.1 g/dL (3.4-5.0); CALCIUM 10.2 mg/dL (8.5-10.1); CREATININE 0.6 mg/dL (0.6-1.3); PHOSPHORUS 3.3 mg/dL (2.5-4.9); POTASSIUM 3.3 mmol/L (3.5-5.1)
[2016-09-30 06:02] LABS: MANUAL DIFF YES
[2016-09-30 08:17] LABS: TOTAL CELL COUNT 100
[2016-09-30 08:18] LABS: ANISOCYTOSIS 1+
[2016-10-01] VITALS (31 sets, daily range): BP systolic 112–160; BP diastolic 39–67
[2016-10-01 04:35] LABS: HEMATOCRIT 24.7 % (42.0-52.0); HEMOGLOBIN 7.7 gm/dL (14.0-18.0); MCH 30.1 pg (26.0-34.0); MCHC 31.3 % (28.0-37.0); MCV 96.4 fL (80.0-100.0); RBC 2.56 mil/uL (4.50-6.00); RDW 18.1 % (10.5-14.5); WBC 15.4 thou/uL (4.0-11.0)
[2016-10-01 04:46] LABS: ALBUMIN 1.1 g/dL (3.4-5.0); CALCIUM 10.3 mg/dL (8.5-10.1); CREATININE 0.6 mg/dL (0.6-1.3); POTASSIUM 3.3 mmol/L (3.5-5.1)
[2016-10-01 09:21] LABS: INR 1.1; PROTIME 11.5 Seconds (9.3-11.4)
[2016-10-02] VITALS (24 sets, daily range): BP systolic 119–193; BP diastolic 38–75
[2016-10-02 05:14] LABS: BASOPHILS 0.4 % (0.0-2.0); EOSINOPHILS 1.9 % (0.0-3.0); HEMOGLOBIN 7.6 gm/dL (14.0-18.0); LYMPHOCYTES 10.2 % (24.0-44.0); MCH 29.8 pg (26.0-34.0); MCHC 31.9 % (28.0-37.0); MCV 93.4 fL (80.0-100.0); MONOCYTES 7.4 % (1.0-8.0); PLATELET COUNT 343 thou/uL (150-400); POLYS 80.1 % (36.0-66.0); RBC 2.56 mil/uL (4.50-6.00); RDW 18.2 % (10.5-14.5); WBC 13.7 thou/uL (4.0-11.0)
[2016-10-02 05:16] LABS: MANUAL DIFF NO
[2016-10-02 05:27] LABS: CALCIUM 10.1 mg/dL (8.5-10.1); CREATININE 0.5 mg/dL (0.6-1.3); TOTAL BILIRUBIN 0.2 mg/dL (<0.1-1.0); TOTAL PROTEIN 5.9 g/dL (6.4-8.2)
[2016-10-03] VITALS (24 sets, daily range): BP systolic 125–180; BP diastolic 38–55
[2016-10-03 04:51] LABS: ABSOLUTE NEUTROPHILS 9.1 thou/uL (1.4-8.2); EOSINOPHILS 2.7 % (0.0-3.0); HEMATOCRIT 26.8 % (42.0-52.0); HEMOGLOBIN 8.4 gm/dL (14.0-18.0); MCH 30.3 pg (26.0-34.0); MCHC 31.3 % (28.0-37.0); MCV 96.7 fL (80.0-100.0); MONOCYTES 7.9 % (1.0-8.0); PLATELET COUNT 367 thou/uL (150-400); POLYS 70.4 % (36.0-66.0); RBC 2.77 mil/uL (4.50-6.00); RDW 18.8 % (10.5-14.5); WBC 12.9 thou/uL (4.0-11.0)
[2016-10-03 04:53] LABS: MANUAL DIFF NO
[2016-10-03 05:25] LABS: ALBUMIN 1.1 g/dL (3.4-5.0); CALCIUM 10.6 mg/dL (8.5-10.1); CREATININE 0.5 mg/dL (0.6-1.3); POTASSIUM 3.8 mmol/L (3.5-5.1)
[2016-10-04] VITALS (25 sets, daily range): BP systolic 109–175; BP diastolic 36–56
[2016-10-04 05:03] LABS: ALBUMIN 1.1 g/dL (3.4-5.0); CALCIUM 10.8 mg/dL (8.5-10.1); CREATININE 0.5 mg/dL (0.6-1.3); PHOSPHORUS 2.8 mg/dL (2.5-4.9); POTASSIUM 3.6 mmol/L (3.5-5.1)
[2016-10-04] MEDS ORDERED: LOPRESSOR25 PER TUBE (09:16)
[2016-10-04] MEDS ORDERED: FENTANYL PA25 MCG/HR TRANSDERM (09:16)
[2016-10-04] MEDS ORDERED: METOCLOPRAMID5 MG/ML IV PUSH (09:16)
[2016-10-04] MEDS ORDERED: SEROQUEL 25 MG25 M1 PO (09:16)
[2016-10-04] MEDS ORDERED: LASIX 20 MG TAB20 MG PER TUBE (09:16)
[2016-10-04] MEDS ORDERED: NOVOLIN N100 UNIT/3 SUBQ (09:16)
[2016-10-04] MEDS ORDERED: FEVERALL650 MG RECTAL (09:16)
[2016-10-04] MEDS ORDERED: CLOPIDOGREL75 MG PO (09:16)
[2016-10-04] MEDS ORDERED: ENOXAPARIN40 MG/0.1 SUBQ (09:16)
[2016-10-04] MEDS ORDERED: MEROPENEM500 MG IV (09:16)
[2016-10-04] MEDS ORDERED: FENTANYL 0.50 MCG/ML IV PUSH (09:16)
[2016-10-04 15:30] LABS: ABG SAMPLE TYPE ARTERIAL; BE(vivo) -3.8 mmol/L (-2 to +3); HCO3 20.7 mmol/L (22.0-26.0); LACTATE 1.07 mmol/L (0.5-2.0); O2(CT) 11.1 mL/dL (15.0-23.0); O2Hb 95.8 % (92.0-98.0); PCO2 34.8 mmHg (35.0-45.0); PO2 92.3 mmHg (80.0-100.0); pH 7.392 (7.360-7.450); sO2 97.1 % (92.0-98.0); tCO2 21.8 mmol/L (24.0-30.0)
[2016-10-04 15:31] LABS: ABG COMMENT 2 HRS CPAP; Pressure Support 12 cm H20; STICK SITE R.RADIAL
[2016-10-05] VITALS (24 sets, daily range): BP systolic 111–164; BP diastolic 41–77
[2016-10-06] VITALS (24 sets, daily range): BP systolic 104–166; BP diastolic 38–62
[2016-10-06 05:30] LABS: ABSOLUTE NEUTROPHILS 8.4 thou/uL (1.4-8.2); BASOPHILS 0.4 % (0.0-2.0); EOSINOPHILS 3.3 % (0.0-3.0); HEMATOCRIT 25.8 % (42.0-52.0); HEMOGLOBIN 8.1 gm/dL (14.0-18.0); LYMPHOCYTES 15.2 % (24.0-44.0); MCHC 31.3 % (28.0-37.0); MCV 95.8 fL (80.0-100.0); MONOCYTES 10.2 % (1.0-8.0); PLATELET COUNT 376 thou/uL (150-400); POLYS 70.9 % (36.0-66.0); RBC 2.69 mil/uL (4.50-6.00); RDW 18.6 % (10.5-14.5); WBC 11.8 thou/uL (4.0-11.0)
[2016-10-06 05:37] LABS: CALCIUM 10.7 mg/dL (8.5-10.1); CREATININE 0.5 mg/dL (0.6-1.3); POTASSIUM 3.9 mmol/L (3.5-5.1)
[2016-10-06 05:56] LABS: MANUAL DIFF NO
[2016-10-07] VITALS (22 sets, daily range): BP systolic 125–171; BP diastolic 46–76
[2016-10-07 05:46] LABS: BASOPHILS 0.5 % (0.0-2.0); EOSINOPHILS 2.7 % (0.0-3.0); HEMATOCRIT 27.7 % (42.0-52.0); HEMOGLOBIN 8.8 gm/dL (14.0-18.0); LYMPHOCYTES 15.2 % (24.0-44.0); MCH 30.2 pg (26.0-34.0); MCHC 31.8 % (28.0-37.0); MONOCYTES 8.4 % (1.0-8.0); PLATELET COUNT 436 thou/uL (150-400); POLYS 73.2 % (36.0-66.0); RBC 2.91 mil/uL (4.50-6.00); WBC 10.9 thou/uL (4.0-11.0)
[2016-10-07 05:52] LABS: MANUAL DIFF NO
[2016-10-07 06:00] LABS: CALCIUM 11.2 mg/dL (8.5-10.1); CREATININE 0.4 mg/dL (0.6-1.3); POTASSIUM 3.9 mmol/L (3.5-5.1)
[2016-10-15] MEDS ORDERED: MEROPENEM-500 MG/50 IVPB (16:24)
[2016-10-15] MEDS ORDERED: ATROVENT HFA14 GM INH (16:27)
[2016-10-15] MEDS ORDERED: POTASSIUM20 PER TUBE (16:28)
[2016-10-16] MEDS ORDERED: LEVEMIR SUBQ (07:50)
[2016-10-16] MEDS ORDERED: VANCOMYCIN750 MG/150 IVPB (09:40)
[2016-10-16] MEDS ORDERED: LASIX 40 MG TAB40 M2 IV PUSH (09:42)
[2016-10-16] MEDS ORDERED: APAP650 PO (09:46)
[2016-10-16] MEDS ORDERED: PLAVIX 75 MG TA75 M1 PER TUBE (09:49)
[2016-10-16] MEDS ORDERED: HEPARIN SO5000 UNIT/ SUBQ (09:53)
[2016-10-16] MEDS ORDERED: FENTANYL CITRATE1 GM TOP (09:59)
[2016-10-16] MEDS ORDERED: OMEPRAZOLE40 MG NG (10:01)
[2016-10-16] MEDS ORDERED: ENTERAL NUTRITION FORMULA PER TUBE (10:04)
[2016-10-16] MEDS ORDERED: HYDROCODONE-AP1 EAC6 PER TUBE (10:05)
== END 2016-10-07 16:40 | DRG 3 ==
LOC: ER 08:54 → ICU 10:06 → EROBS 10:06 → ICU 13:20
PROVIDERS: Emergency Medicine; Hospitalist; Internal Medicine; Internal Medicine Endocrinology, Diabetes & Metabolism; Internal Medicine Nephrology; Internal Medicine Pulmonary Disease; Nurse Practitioner; Nurse Practitioner Acute Care; Radiology Vascular & Interventional Radiology; Specialist; Surgery; Surgery Vascular Surgery
PROC: 05HB33Z Insertion of Infusion Device into Right Basilic Vein, Percutaneous Approach (ICD-10-PCS; principal; 2016-09-16)
PROC: 30233N1 Transfusion of Nonautologous Red Blood Cells into Peripheral Vein, Percutaneous Approach (ICD-10-PCS; principal; 2016-09-16)
PROC: 0BH17EZ Insertion of Endotracheal Airway into Trachea, Via Natural or Artificial Opening (ICD-10-PCS; principal; 2016-09-16)
PROC: 5A1955Z Respiratory Ventilation, Greater than 96 Consecutive Hours (ICD-10-PCS; principal; 2016-09-16)
PROC: 0QB10ZZ Excision of Sacrum, Open Approach (ICD-10-PCS; 2016-09-27)
PROC: 0B110F4 Bypass Trachea to Cutaneous with Tracheostomy Device, Open Approach (ICD-10-PCS; 2016-09-30)
PROC: 047H3DZ Dilation of Right External Iliac Artery with Intraluminal Device, Percutaneous Approach (ICD-10-PCS; 2016-10-01)
PROC: 047J3DZ Dilation of Left External Iliac Artery with Intraluminal Device, Percutaneous Approach (ICD-10-PCS; 2016-10-01)
PROC: 047D3DZ Dilation of Left Common Iliac Artery with Intraluminal Device, Percutaneous Approach (ICD-10-PCS; 2016-10-01)
DX: A41.9 Sepsis, unspecified organism (principal); J96.01 Acute respiratory failure with hypoxia; R65.21 Severe sepsis with septic shock; E43 Unspecified severe protein-calorie malnutrition; L89.154 Pressure ulcer of sacral region, stage 4; J69.0 Pneumonitis due to inhalation of food and vomit; G93.40 Encephalopathy, unspecified; N17.9 Acute kidney failure, unspecified; N39.0 Urinary tract infection, site not specified; I70.92 Chronic total occlusion of artery of the extremities; E87.0 Hyperosmolality and hypernatremia; Z99.11 Dependence on respirator [ventilator] status; D64.9 Anemia, unspecified; E86.0 Dehydration; E11.65 Type 2 diabetes mellitus with hyperglycemia; B96.1 Klebsiella pneumoniae [K. pneumoniae] as the cause of diseases classified elsewhere; I73.9 Peripheral vascular disease, unspecified; I25.10 Atherosclerotic heart disease of native coronary artery without angina pectoris; E87.70 Fluid overload, unspecified; E83.42 Hypomagnesemia; E87.6 Hypokalemia; B95.62 Methicillin resistant Staphylococcus aureus infection as the cause of diseases classified elsewhere; E83.41 Hypermagnesemia; N18.9 Chronic kidney disease, unspecified; E66.9 Obesity, unspecified; Z68.34 Body mass index [BMI] 34.0-34.9, adult; Z98.890 Other specified postprocedural states; Z95.1 Presence of aortocoronary bypass graft; Z79.4 Long term (current) use of insulin; Z79.899 Other long term (current) drug therapy
CPT/HCPCS: 10078; 50101; 50386; 50403; 50517; 53353; 53354; 56525; 62110; 62900; 85076

== ENCOUNTER 2016-10-18 05:22 | Day surgery (SDC) | payer OTHER ==
[~2016-10-18] VITALS: Ht 177.8 cm; Wt 111.0 kg
--- NOTE | ~2016-10-18 | S ---
[facility] [place] [address] [place] [address] SURGICAL PATH RPT PROCEDURE Name: GILMER JOLLEY Room #: [facility] M.R.#: [id number] Admission: 10/18/16 Date of : 42 Discharge: 10/18/16 Report #: [id number] Path Case #: [id number] PATHOLOGY REPORT COLLECTION DATE: 10/18/2016 RECEIVED DATE: 10/18/2016 SUBMITTING PHYS: Dr. Kelly Proctor OTHER PHYS: Dr. Sloane Simpson ADDENDUM REPORT (Order Date: 10/22/2016 13:33) ADDENDUM COMMENT: This addendum is issued subsequent to reviewing a well controlled Congo red special stain performed on block A1. It is negative for amyloid. The originally rendered diagnosis remains unchanged. Co-review: Dr. La Sharma (IUV:all; d/t: 10/22/2016) Professional services performed by [facility] at [facility] [place] [place] [address], [place] [address] Technical services performed by [facility] at [address] [place] [address], [address] [place] [address]. ELECTRONICALLY SIGNED BY: Candi Warner M.D. DATE/TIME:10/22/2016 14:36 SPECIMEN(S) RECEIVED: A.Sacral decubitus ulcer * * * * * * * * * * * * FINAL DIAGNOSIS: Sacral decubitus: - Marked acute inflammation along with necrosis extending into underlying tissue, compatible with findings of an ulcer bed. - Dense eosinophilic material present within subcutaneous tissue. (Please see comment) COMMENT: A Congo red special stain is ordered. This stain will be reported in an addendum to follow. (IUV:csd; d/t: 10/21/2016) PATHOLOGIST: Candi Warner M.D. REPORT ELECTRONICALLY SIGNED BY: Candi Warner M.D. DATE/TIME: 10/21/2016 15:[address] [facility] [place] [facility] [place] [address] SURGICAL PATH RPT PROCEDURE Name: GILMER JOLLEY Room #: DEP [facility].#: [id number] Admission: 10/18/16 Date of : 42 Discharge: 10/18/16 Report #: [id number] Path Case #: [id number] * * * * * * * * * * * * GROSS PATHOLOGY: The specimen is received in formalin labeled "Gilmer Jolley, sacral decubitus". Received are multiple segments of dusky sofia-guy to yellow-guy soft tissue admixed with possible skin measuring 6.5 x 5.8 x 2.5 cm in aggregate dimensions. The specimen is submitted representatively in cassette A1. (CAA; 10/18/2016) CLINICAL HISTORY: Sacral wound INITIAL CPT CODE(S): A; 18575, 20199 Professional services performed by [facility] at [facility] [place] [place] [address] [place] [address] Technical services performed by [facility] at [address] [place] [address], [address], [place] [address]. [facility] [address] [place] [address] PHONE: [phone] DIRECTOR: Jefe Colindres M.D. * * * END OF REPORT * * *
--- NOTE | ~2016-10-18 | O ---
[facility] [place] [address] OPERATIVE REPORT Name: GALO JOLLEY Room #: 150-7 [facility] M.R.#: [id number] Admission: 10/18/16 Attend Phys: Kelly Proctor MD, Discharge: Date of : 42 Report #: [id number] THIS REPORT FOR: //name// CC: Sloane HURST physician/PCP Kelly Proctor DATE OF SERVICE: 10/18/2016 PREOPERATIVE DIAGNOSES: 1. 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 2. Severe protein-calorie malnutrition. 3. Diabetes mellitus. 4. Coronary artery disease, status post 4-vessel coronary artery bypass grafting. 5. Dysphagia, status post PEG tube placement. 6. Hypertension. 7. Congestive heart failure. 8. Peripheral arterial disease, status post angiogram with stenting. 9. Chronic anemia. 10. Recent colostomy placement for fecal diversion. 11. 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 12. Resolving healthcare-associated pneumonia and prior urinary tract infections. POSTOPERATIVE DIAGNOSES 1. 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 2. Severe protein-calorie malnutrition. 3. Diabetes mellitus. 4. Coronary artery disease, status post 4-vessel coronary artery bypass grafting. 5. Dysphagia, status post PEG tube placement. 6. Hypertension. 7. Congestive heart failure. 8. Peripheral arterial disease, status post angiogram with stenting. 9. Chronic anemia. 10. Recent colostomy placement for fecal diversion. 11. 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 12. Resolving healthcare-associated pneumonia and prior urinary tract infections. PROCEDURE PERFORMED: Excisional debridement of skin, subcutaneous tissue, muscle, and bone from a very large stage 4 recurrent sacral gluteal decubitus wound, ultimately measuring 33 x 32 cm in dimension (1056 square cm). Preoperative wound measurements were 32 x 32 cm in dimension with scant johnnie-wound necrosis on the lateral aspects of the wound, as well as throughout [facility] [address] [place] [address] OPERATIVE REPORT Name: GALO JOLLEY Room #: 150-7 [facility].#: [id number] Admission: 10/18/16 Attend Phys: Kelly Proctor MD, Discharge: Date of : 42 Report #: [id number] the bed of the wound. SURGEON: Kelly Proctor M.D. [employer] OPERATOR: Colten Obando MS3. ANESTHESIA: General endotracheal anesthesia. ESTIMATED BLOOD LOSS: 10 mL. COMPLICATIONS: None appreciated. SPECIMENS: All excised tissue to pathology with excised sacral bone to microbiology for culture. COMPLICATIONS: None appreciated. INDICATIONS: The patient is a 76-year-old male, with a very complicated recent past medical history, that began with shortness of breath, where he was found to be in pulmonary edema with CHF. The patient was found to have 4-vessel coronary artery disease, as well as carotid occlusions and underwent carotid endarterectomy with subsequent myocardial infarction that necessitated 4-vessel CABG. The patient then underwent stenting of subclavian stenosis, and he developed a stage 4 sacral decubitus wound and underwent multiple excisional debridements at [facility]. The patient was ultimately transitioned to [facility] for rehabilitative care, where his wound continued with necrosis and purulent drainage for which, he underwent wide excisional debridement, as well as diverting colostomy. The patient developed healthcare-associated pneumonia and urinary tract infection and was intubated in a prolonged fashion that ultimately necessitated tracheostomy placement, and he has undergone numerous repeat debridements due to recurrent necrosis of his sacral gluteal tissues. As subsequent debridements were done, there was no evidence of bleeding at his tissues, and I arranged for interventional radiology to perform stenting of his bilateral iliac arteries to improve blood flow to his sacral gluteal regions. The patient has now transitioned to [facility] for rehabilitative efforts and is doing quite well, and at the last sacral debridement, he had evidence of healthy tissue throughout; however, he now has recurrent necrosis in the small fashion, that necessitates hopefully one final debridement back to healthy tissue to allow long-term wound healing. DESCRIPTION OF PROCEDURE: After explaining the risks, benefits, and alternatives of the procedure with the patient's son Adi Knox, his DPOA Juan, and obtaining consent, the patient was brought to the operating room, supine on his hospital bed. After conducting a thorough timeout procedure verifying correct patient and procedure, he was given general endotracheal anesthesia via his indwelling tracheostomy appliance. His SCDs were hooked up [address] [address] OPERATIVE REPORT Name: GALO JOLLEY Room #: 150-7 [facility] M.R.#: [id number] Admission: 10/18/16 Attend Phys: Kelly Proctor MD, Discharge: Date of : 42 Report #: [id number] to pneumatic compression device. He was given a preoperative dose of antibiotics in line with the SCIP protocol. The patient was then positioned on the operating room table in the prone position, with all pressure points appropriately padded, and his wounds were prepped and draped in standard surgical sterile fashion. Electrocautery was used to circumferentially debride all nonviable skin, subcutaneous tissue, muscle, and bone throughout the bed of the entire wound. This was done until I arrived upon healthy vascularized tissue throughout. The patient's wound had markedly improved blood flow once again today, even versus prior debridement, which was performed 11 days ago. Ultimately, this yielded a wound that measured 33 cm transversely x 32 cm in craniocaudal dimension, but was healthy and vascularized throughout. All bone prominences had their outer spongy cortex removed and passed off the field, and a rast was used to smooth out all bony pressure points. All bony prominences bled which is an extremely encouraging sign. I now used the [employer] ultrasonic debridement tool to circumferentially debride all additional nonviable tissue, as well as all the biofilm that had collected throughout the entirety of the wound. This again yielded significant bleeding throughout the entirety of the wound, and gentle pressure was held for hemostasis. Electrocautery was used to obtain ultimate hemostasis at this juncture. The wound was irrigated and dried. Hemostasis was assured and then the wound was packed with sterile saline soaked Kerlix gauze, dressed with fluffs, ABDs, and Medipore tape. At the end of the procedure, all instrument, needle, and sponge counts were correct. The patient tolerated the procedure without incident, was awakened in the operating room and transitioned to the recovery room in stable condition with no apparent complications. <ELECTRONICALLY SIGNED> By: Kelly Proctor MD, FACS 10/21/16 [id number] Kelly Proctor MD, FACS /nt
[~2016-10-18 05:22] MED LIST changes: +APAP650 PO; +ATROVENT HFA14 GM INH; +CLOPIDOGREL75 MG PO; +ENOXAPARIN40 MG/0.1 SUBQ; +ENTERAL NUTRITION FORMULA PER TUBE; +FENTANYL 0.50 MCG/ML IV PUSH; +FENTANYL CITRATE1 GM TOP; +FENTANYL PA25 MCG/HR TRANSDERM; +FEVERALL650 MG RECTAL; +HEPARIN SO5000 UNIT/ SUBQ; +HYDROCODONE-AP1 EAC6 PER TUBE; +LASIX 40 MG TAB40 M2 IV PUSH; +LEVEMIR SUBQ; +LOPRESSOR25 PER TUBE; +MEROPENEM-500 MG/50 IVPB; +MEROPENEM500 MG IV; +METOCLOPRAMID5 MG/ML IV PUSH; +NOVOLIN N100 UNIT/3 SUBQ; +OMEPRAZOLE40 MG NG; +PLAVIX 75 MG TA75 M1 PER TUBE; +SEROQUEL 25 MG25 M1 PO; +VANCOMYCIN750 MG/150 IVPB
[2016-10-18 08:00] VITALS: BP 139/75
== END 2016-10-18 15:30 | disposition home or self-care (01) ==
LOC: TBA 05:22 → OR 05:22
DX: L89.154 Pressure ulcer of sacral region, stage 4 (principal); E11.9 Type 2 diabetes mellitus without complications; I25.10 Atherosclerotic heart disease of native coronary artery without angina pectoris; I11.0 Hypertensive heart disease with heart failure; R13.10 Dysphagia, unspecified; E46 Unspecified protein-calorie malnutrition; I50.9 Heart failure, unspecified; G47.33 Obstructive sleep apnea (adult) (pediatric); J44.9 Chronic obstructive pulmonary disease, unspecified; I73.9 Peripheral vascular disease, unspecified; D64.89 Other specified anemias; J96.90 Respiratory failure, unspecified, unspecified whether with hypoxia or hypercapnia; Z93.0 Tracheostomy status; Z93.3 Colostomy status; Z93.1 Gastrostomy status; Z95.5 Presence of coronary angioplasty implant and graft
CPT/HCPCS: 50010; 50101; 50386; 50403; 53353; 53354; 57091; 62110; 62900; 70005